=== PATIENT | male | born 1945 | race Caucasian/White ===

== ENCOUNTER 2021-01-04 06:00 | Outpatient (RCR) | payer MEDICARE, MEDICAID, SELFPAY | END 2021-01-05 23:59 | disposition home or self-care (01) | LOC: MPT 06:00 | PROVIDERS: PCP Internal Medicine Cardiovascular Disease; Referring Provider Family Medicine; Visit Provider Family Medicine | DX: M25.511 Pain in right shoulder (principal); M25.512 Pain in left shoulder | CPT/HCPCS: 97162 ==

== ENCOUNTER 2021-10-09 16:33 | Emergency (ER) | payer MEDICARE, MEDICAID, SELFPAY ==
[2021-10-09 16:46] VITALS: BP 148/84; PULSE 77; RESP 19; TEMP 36.6; O2SAT 98; BMI 23.7
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
--- NOTE | 2021-10-09 17:12 | ECG_ITS ---
[facility] Test Date: 2021-10-09 Pat Name: Jeison Herrera Department: Room: Gender: Male Manufacturing Operations Manager: : 1945 Requested By: Gibran Graves Order Number: [id number] Pavithra MD: Franco Cortes M.D. Measurements Intervals [place] Rate: 68 P: 65 W[place]: 210 QRS: 50 QRSD: 97 T: 51 QT: 374 QTc: 398 Interpretive Statements SINUS RHYTHM WITH FIRST DEGREE AV BLOCK Compared to ECG 03/30/2018 14:33:22 First degree AV block now present Electronically Signed On 10-10-2021 15:28:16 CDT by Franco Cortes M.D. [id number]
--- NOTE | 2021-10-09 17:48 | PC.NURSE ---
PT PLACED ON CONTINUOUS SPO2, NIBP, AND CM.
[2021-10-09 17:57] LABS: Basophils # 0.1 10^3/uL (0.0-0.1); Basophils % 0.6 %; Eosinophils # 0.1 10^3/uL (0.0-0.8); Hemoglobin 18.2 g/dL (11.7-16.6); Lymphocytes # 2.1 10^3/uL (0.8-4.8); Lymphocytes % 21.9 %; Mean Corpuscular HGB Conc 35.7 g/dL (30.0-36.0); Mean Corpuscular Hemoglobin 31.3 pg (28.0-34.0); Mean Corpuscular Volume 87.8 fl (80-94); Mean Platelet Volume 10.5 fL (7.4-10.4); Monocytes # 0.6 10^3/uL (0.2-0.9); Monocytes % 6.2 %; Neutrophils # 6.65 10^3/uL (1.8-7.7); Neutrophils % 70.2 %; Nucleated Red Blood Cells % 0 %; Platelet Count 181 10^3/cmm (130-400); Red Blood Count 5.81 10^6/uL (4.1-5.3); Red Cell Distribution Width 12.8 % (12.1-15.1); White Blood Count 9.5 10^3/uL (4.0-10.0)
[2021-10-09 17:58] LABS: Add Urine Microscopic? NO; Charge for UA Resulting for Rev
[2021-10-09 18:06] LABS: Bilirubin Urine Neg (Negative); Blood Urine Neg (Negative); Glucose Urine UA Norm (Normal); Ketones Urine Negative (Negative); Leukocyte Esterase Urine Negative (Negative); Nitrate Urine Negative (Negative); Protein Urine Neg (Negative); Urine Appearance Clear (CLEAR); Urine Color Yellow (Yellow); Urobilinogen Urine Norm (Negative); pH Urine 5 (5-7)
[2021-10-09] MEDS: lactated ringers 1,000 ML 999 ML IV (18:10)
[2021-10-09 18:34] LABS: Alanine Aminotransferase 28 U/L (0-41); Albumin Level 5.3 g/dL (3.5-5.2); Alkaline Phosphatase 96 IU/L (40-130); Anion Gap 16.9 (5-19); Aspartate Amino Transferase 18 U/L (0-40); Blood Urea Nitrogen 16 mg/dL (8-23); Calcium 10.1 mg/dL (8.5-10.5); Carbon Dioxide 25 mmol/L (22-29); Chloride 99 mmol/L (98-107); Creatine Phosphokinase 96 U/L (39-308); Globulin 2.1 g/dL (1.3-4.6); Glucose 179 mg/dL (65-115); Osmolality Calculated 290 mOsm/kg (285-295); Potassium 3.9 mmol/L (3.5-5.1); Sodium 137 mmol/L (136-145); Total Bilirubin 1.2 mg/dL (0.15-1.2); Total Protein 7.4 g/dL (6.6-8.7)
[2021-10-09 18:59] LABS: Troponin(5th) Baseline 8 ng/L (0-15)
--- NOTE | 2021-10-09 19:02 | PC.NURSE ---
REPORT GIVEN TO [facility].
[2021-10-09 19:52] LABS: Troponin 5 2HR 8.04 ng/L (0-15)
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
[2021-10-09 21:30] VITALS: BP 142/85
--- NOTE | 2021-10-10 12:31 | DCPLANNER ---
Addendum entered by Karma José 11/09/21 21:41: Patient had [facility] appointment scheduled with [facility] - this appointment was rescheduled. Addendum entered by Karma José 10/11/21 08:23: Patient has a follow up appointment scheduled for Tuesday, November 09, 2021 at 11:[address] Mello at [facility]. it operations manager spoke with patients and gave her the appointment information. Addendum entered by Karma José 10/10/21 12:34: it operations manager sent patients information to [facility] not [facility]. Original Note: it operations manager had message to schedule a follow up appointment for patient with cardiology. it operations manager sent patients information to the front staff at [facility] thru [employer] messaging system. Patients information will be printed and reviewed. Clinic will call patient with appointment information.
--- NOTE | 2021-10-10 15:40 | DCPLANNER ---
Addendum entered by Karma José 10/11/21 08:24: Patients returned ed case manager phone call. global compensation manager explained that this feature writer was wanting to confirm that patient still wanted to have the stress test ordered and to confirm who patient sees for a primary care physician. global compensation manager was told that patient sees Salvador Wayen for primary care and that patient wants to wait and see Dr. Mello before scheduling the stress test. Patient stated that if Dr. Mello says that patient needs a stress test, then she can order the test. Patient is aware of the scheduled appointment with Dr. Mello. Original Note: global compensation manager had message to schedule an out patient stress test for patient. global compensation manager called phone number [phone], to confirm that patient wanted the stress test ordered and to confirm who patient sees for primary care physician. global compensation manager was unable to speak with patient at this time, a voicemail was left for patient to return ed case manager phone call.
== END 2021-10-09 21:31 | disposition home or self-care (01) ==
PROVIDERS: Family Medicine; Emergency Provider Emergency Medicine; PCP Family Medicine
DX: R07.89 Other chest pain (principal); I95.89 Other hypotension; E11.9 Type 2 diabetes mellitus without complications; Z87.828 Personal history of other (healed) physical injury and trauma
CPT/HCPCS: 71045; 80053; 81003; 82550; 84484; 85025; 93005; 96360; 99284

== ENCOUNTER 2022-07-05 10:25 | Emergency (ER) | payer MEDICARE, MEDICAID, SELFPAY ==
[2022-07-05 10:29] VITALS: BP 178/91; PULSE 72; RESP 18; TEMP 37.2; O2SAT 98; BMI 24.4
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
--- NOTE | 2022-07-05 12:02 | DCPLANNER ---
Addendum entered by Karma José 07/14/22 11:04: Patient had a follow up appointment scheduled with Wound Care - patient did attend appointment. Original Note: contact center manager was asked to call W[facility] Care about scheduling an appointment for patient. contact center manager called the Wound Care clinic, spoke with Rebecca, a follow up appointment was scheduled for , July 06, 2022 at 2:[address] disla at wound care. contact center manager informed physician and patient of the scheduled appointment. Patient stated that he would go to appointment.
== END 2022-07-05 11:32 | disposition home or self-care (01) ==
PROVIDERS: Emergency Provider Family Medicine; PCP Family Medicine
DX: T33.822A Superficial frostbite of left foot, initial encounter (principal); T33.821A Superficial frostbite of right foot, initial encounter; E11.9 Type 2 diabetes mellitus without complications; X31.XXXA Exposure to excessive natural cold, initial encounter
CPT/HCPCS: 73620; 99283

== ENCOUNTER → 2022-07-06 14:16 | Outpatient (BNVA) | payer MEDICARE, MEDICAID, SELFPAY | PROVIDERS: PCP Family Medicine; Visit Provider Surgery | DX: S90.822A Blister (nonthermal), left foot, initial encounter (principal); S90.821A Blister (nonthermal), right foot, initial encounter; X58.XXXA Exposure to other specified factors, initial encounter | CPT/HCPCS: 99212 ==

== ENCOUNTER 2022-11-19 10:29 | Emergency (ER) | payer MEDICARE, MEDICAID, SELFPAY ==
[2022-11-19] VITALS (36 sets, daily range): BP systolic 93–156; BP diastolic 55–93; PULSE 72; TEMP 36.6; O2SAT 93–100; BMI 23.7
--- NOTE | 2022-11-19 11:58 | CTR_ITS ---
PROCEDURE INFORMATION: Exam: CT Neck With Contrast Exam date and time: 11/19/2022 1:43 PM Age: 77 years old Clinical indication: Other: Jaw pain; Additional info: RT superior neck pain TECHNIQUE: Imaging protocol: Computed tomography of the neck with contrast. Radiation optimization: All CT scans at this facility use at least one of these dose optimization techniques: automated exposure control; mA and/or kV adjustment per patient size (includes targeted exams where dose is matched to clinical indication); or iterative reconstruction. Contrast material: OMNI 350; Contrast volume: 80 ml; Contrast route: INTRAVENOUS (IV); REPORTING DATA: Count of CT and Cardiac NM exams in prior 12 months: This patient has received 0 known CTs and 0 known cardiac nuclear medicine studies in the 12 months prior to the current study. COMPARISON: CT cervical spin wo con* [id number] 04/04/2017 3:36 PM RADIATION DOSE METRICS: Total DLP (mGy-cm): 286.38 FINDINGS: Orbital cavities: Visualized orbits appear unremarkable. Pharynx: Unremarkable. No significant tonsillar enlargement. Larynx: Unremarkable. Epiglottis is normal. Prevertebral and retropharyngeal spaces: Unremarkable. Salivary glands: Normal. Glands are normal in size. Thyroid: Normal. No enlarged or calcified nodules. Lymph nodes: No enlarged or morphologically abnormal lymph nodes. Trachea: Visualized trachea is unremarkable. Lungs: Unremarkable as visualized. Bones/joints: There is moderate neural foraminal narrowing C5-C6 and C6-C7. No significant degrees of spinal stenosis. No evidence of acute fracture. Vasculature: Bilateral carotid and vertebral arteries are widely patent. Soft tissues: Unremarkable. No significant soft tissue swelling. CT/CT neck w con* [id number] IMPRESSION: No acute or significant findings.
[2022-11-19] MEDS: morphine 4 mg/mL SDV 1 mL IVP (12:15)
[2022-11-19 12:22] LABS: Basophils % 0.4 %; Eosinophils # 0.1 10^3/uL (0.0-0.8); Hematocrit 47.4 % (42.0-52.0); Hemoglobin 16.7 g/dL (11.7-16.6); Lymphocytes # 1.7 10^3/uL (0.8-4.8); Lymphocytes % 15.5 %; Mean Corpuscular HGB Conc 35.2 g/dL (30.0-36.0); Mean Corpuscular Hemoglobin 31.5 pg (28.0-34.0); Mean Corpuscular Volume 89.3 fl (80-94); Mean Platelet Volume 10.3 fL (7.4-10.4); Monocytes # 0.9 10^3/uL (0.2-0.9); Monocytes % 8.6 %; Neutrophils # 7.93 10^3/uL (1.8-7.7); Neutrophils % 74.3 %; Nucleated Red Blood Cells % 0 %; Platelet Count 155 10^3/cmm (130-400); Red Blood Count 5.31 10^6/uL (4.1-5.3); Red Cell Distribution Width 12.6 % (12.1-15.1); White Blood Count 10.7 10^3/uL (4.0-10.0)
[2022-11-19 12:47] LABS: Alanine Aminotransferase 19 U/L (0-41); Albumin Level 4.8 g/dL (3.5-5.2); Alkaline Phosphatase 95 U/L (40-130); Aspartate Amino Transferase 14 U/L (0-40); Blood Urea Nitrogen 10 mg/dL (8-23); C Reactive Protein 3.3 mg/L (0.0-4.9); Calcium 8.8 mg/dL (8.5-10.5); Carbon Dioxide 25 mmol/L (22-29); Chloride 103 mmol/L (98-107); Globulin 2.6 g/dL (1.3-4.6); Glucose 144 mg/dL (65-115); Osmolality Calculated 290 mOsm/kg (285-295); Sodium 139 mmol/L (136-145); Total Bilirubin 1.3 mg/dL (0.15-1.2); Total Protein 7.4 g/dL (6.6-8.7)
[2022-11-19] MEDS: dexamethasone 10 mg/mL INJ IVP (13:27)
[2022-11-19 13:28] LABS: Erythrocyte Sedimentation Rate 3 mm/hr (0-10)
[2022-11-19] MEDS: morphine 4 mg/mL SDV 1 mL 2 MG IVP (13:28)
--- NOTE | 2022-11-19 13:47 | PC.PHAR ---
pts verified pts medications states the pt is no longer taking flomax 0.4mg daily ext shows last filled 07/15/22 90d/s-pts states the pt is taking lansoprazole 30mg qam and pepcid 40mg hs
[2022-11-19] MEDS: iohexol 350 mg/mL 500 mL Btl (per mL) IV (13:49)
[2022-11-19] MEDS: gabapentin 100 mg Capsule PO (17:05)
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
== END 2022-11-19 17:17 | disposition home or self-care (01) ==
PROVIDERS: Emergency Provider Physician Assistant; PCP Family Medicine
DX: G50.0 Trigeminal neuralgia (principal); Z79.84 Long term (current) use of oral hypoglycemic drugs; E11.9 Type 2 diabetes mellitus without complications
CPT/HCPCS: 70491; 80053; 85025; 85651; 86140; 96374; 96375; 96376; 99285; J1100; J2270; Q9967

== ENCOUNTER 2023-04-07 14:35 | Emergency (ER) | payer MEDICARE, MEDICAID, SELFPAY ==
[2023-04-07 14:36] VITALS: BP 150/71; PULSE 72; RESP 16; O2SAT 99
--- NOTE | 2023-04-07 14:48 | ECG_ITS ---
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 Measurements Intervals [place] Rate: 62 P: 54 PA: 232 QRS: 35 QRSD: 85 T: 42 QT: 375 QTc: 382 Interpretive Statements SINUS RHYTHM WITH FIRST DEGREE AV BLOCK Compared to ECG 10/09/2021 17:43:00 No significant changes Electronically Signed On 04-08-2023 11:10:59 CDT by Nicolas Aguirre M.D. [email or web address]
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
[2023-04-07 15:14] VITALS: BP 119/71; PULSE 67; RESP 17; O2SAT 95
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
[2023-04-07 15:28] LABS: Basophils # 0.1 10^3/uL (0.0-0.1); Basophils % 0.7 %; Eosinophils # 0.1 10^3/uL (0.0-0.8); Eosinophils % 1.4 %; Hematocrit 46.2 % (37-53); Lymphocytes # 1.9 10^3/uL (0.8-4.8); Lymphocytes % 26.3 %; Mean Corpuscular HGB Conc 35.5 g/dL (30-55); Mean Corpuscular Hemoglobin 31.5 pg (27-33); Mean Corpuscular Volume 88.7 fl (82-101); Monocytes # 0.6 10^3/uL (0.2-0.9); Neutrophils # 4.44 10^3/uL (1.8-7.7); Neutrophils % 62.3 %; Nucleated Red Blood Cells % 0 %; Platelet Count 138 10^3/cmm (157-399); Red Blood Count 5.21 10^6/uL (3.85-5.65); Red Cell Distribution Width 13.1 % (12.1-15.1); White Blood Count 7.12 10^3/uL (3.29-11.43)
[2023-04-07 15:40] LABS: Troponin(5th) Baseline 7 ng/L (0-15)
[2023-04-07 15:44] LABS: Blood Urea Nitrogen 10 mg/dL (8-23); Calcium 8.7 mg/dL (8.5-10.5); Carbon Dioxide 22 mmol/L (22-29); Chloride 105 mmol/L (98-107); Creatinine Clr Calc Pharmacy 72.8653; Glucose 165 mg/dL (65-115); Osmolality Calculated 293 mOsm/kg (285-295); Sodium 140 mmol/L (136-145)
[2023-04-07 16:00] VITALS: BP 134/75; PULSE 62; RESP 14; O2SAT 95
--- NOTE | 2023-04-07 16:48 | ECG_ITS ---
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 Measurements Intervals [place] Rate: 70 P: 56 [place]: 211 QRS: 42 QRSD: 93 T: 34 QT: 371 QTc: 402 Interpretive Statements SINUS RHYTHM WITH FIRST DEGREE AV BLOCK Compared to ECG 10/09/2021 17:43:00 No significant changes Electronically Signed On 04-08-2023 11:12:32 CDT by Nicolas Aguirre M.D. [id number]
[2023-04-07 17:00] VITALS: BP 124/74; PULSE 61; O2SAT 96
--- NOTE | 2023-04-07 17:17 | ECG_ITS ---
[facility] Test Date: 2023-04-07 Pat Name: Jeison Herrera Department: Room: Gender: Male Parole Agent: : 1945 Requested By: Adam Lynn Order Number: [id number] Pavithra MD: Nicolas Aguirre M.D. Measurements Intervals [place] Rate: 57 P: 55 [place]: 215 QRS: 33 QRSD: 90 T: 39 QT: 403 QTc: 393 Interpretive Statements SINUS BRADYCARDIA WITH FIRST DEGREE AV BLOCK Compared to ECG 04/07/2023 16:05:13 Sinus rhythm no longer present Electronically Signed On 04-08-2023 11:12:29 CDT by Nicolas Aguirre M.D. [id number]
== END 2023-04-07 17:57 | disposition home or self-care (01) ==
PROVIDERS: Emergency Provider Emergency Medicine; PCP Family Medicine
DX: R07.9 Chest pain, unspecified (principal); Z79.84 Long term (current) use of oral hypoglycemic drugs; E11.9 Type 2 diabetes mellitus without complications
CPT/HCPCS: 36415; 71045; 80048; 84484; 85025; 93005; 99285

== ENCOUNTER 2023-07-08 17:41 | Emergency (ER) | payer MEDICARE, MEDICAID, SELFPAY ==
[2023-07-08 17:42] VITALS: BP 168/81; PULSE 69; RESP 18; TEMP 36.5; O2SAT 98
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
[2023-07-08 18:30] LABS: Basophils # 0.1 10^3/uL (0.0-0.1); Basophils % 0.7 %; Eosinophils # 0.2 10^3/uL (0.0-0.8); Eosinophils % 2.7 %; Lymphocytes # 2.3 10^3/uL (0.8-4.8); Lymphocytes % 30.7 %; Mean Corpuscular HGB Conc 35.7 g/dL (30-55); Mean Corpuscular Hemoglobin 31.8 pg (27-33); Mean Corpuscular Volume 89.3 fl (82-101); Mean Platelet Volume 10.4 fL (7.4-10.4); Monocytes # 0.6 10^3/uL (0.2-0.9); Monocytes % 7.7 %; Neutrophils # 4.33 10^3/uL (1.8-7.7); Neutrophils % 58.1 %; Nucleated Red Blood Cells % 0 %; Platelet Count 127 10^3/cmm (157-399); Red Blood Count 5.15 10^6/uL (3.85-5.65); Red Cell Distribution Width 12.6 % (12.1-15.1); White Blood Count 7.45 10^3/uL (3.29-11.43)
[2023-07-08 18:40] LABS: INR 0.99 (0.8-1.2)
[2023-07-08 18:46] LABS: Troponin(5th) Baseline < 6 ng/L (0-15)
[2023-07-08 19:11] LABS: Alanine Aminotransferase 20 U/L (0-41); Albumin Level 4.6 g/dL (3.5-5.2); Alkaline Phosphatase 91 U/L (40-130); Aspartate Amino Transferase 16 U/L (0-40); Blood Urea Nitrogen 11 mg/dL (8-23); Calcium 9.1 mg/dL (8.5-10.5); Carbon Dioxide 25 mmol/L (22-29); Chloride 100 mmol/L (98-107); Globulin 2.3 g/dL (1.3-4.6); Glucose 173 mg/dL (65-115); Lipase 25 U/L (13-60); Osmolality Calculated 286 mOsm/kg (285-295); Sodium 136 mmol/L (136-145); Total Bilirubin 0.8 mg/dL (0.15-1.2); Total Protein 6.9 g/dL (6.6-8.7)
[2023-07-08 19:19] LABS: Anion Gap 14.9 (5-19); Potassium 3.9 mmol/L (3.5-5.1)
[2023-07-08 19:48] VITALS: BP 146/89; PULSE 71; RESP 16; O2SAT 94
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
--- NOTE | 2023-07-08 20:12 | ECG_ITS ---
[facility] Test Date: 2023-07-08 Pat Name: Jeison Herrera Department: Room: Gender: Male Svp Business Development: : 1945 Requested By: Que Kim Order Number: [id number] Pavithra MD: Nicolas Aguirre M.D. Measurements Intervals [place] Rate: 67 P: 60 [place]: 210 QRS: 61 QRSD: 86 T: 61 QT: 379 QTc: 401 Interpretive Statements SINUS RHYTHM WITH FIRST DEGREE AV BLOCK Compared to ECG 04/07/2023 17:17:26 Sinus bradycardia no longer present Electronically Signed On 07-09-2023 8:38:24 COMPRESSOR OPERATOR PORTABLE by Nicolas Aguirre M.D. [email or web address] [email or web address]/[id number]
[2023-07-08 20:17] LABS: Troponin 5 2HR Delta 0.00001 ABS# (0-10)
[2023-07-08 20:40] VITALS: BP 148/86; PULSE 68; RESP 16; O2SAT 95
== END 2023-07-08 20:41 | disposition home or self-care (01) ==
PROVIDERS: Emergency Medicine; Emergency Provider Emergency Medicine; PCP Family Medicine
DX: R07.89 Other chest pain (principal); Z79.84 Long term (current) use of oral hypoglycemic drugs; E11.9 Type 2 diabetes mellitus without complications
CPT/HCPCS: 36415; 71045; 80053; 83690; 84484; 85025; 85610; 93005; 99285

== ENCOUNTER 2023-08-27 14:51 | Emergency (ER) | payer MEDICARE, MEDICAID, SELFPAY ==
[2023-08-27 15:06] VITALS: BP 164/84; PULSE 70; RESP 16; TEMP 36.3; O2SAT 99; BMI 23.0
--- NOTE | 2023-08-27 15:23 | ECG_ITS ---
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 Measurements Intervals [place] Rate: 67 P: 66 CT: 206 QRS: 51 QRSD: 98 T: 66 QT: 393 QTc: 415 Interpretive Statements SINUS RHYTHM Compared to ECG 07/08/2023 20:12:58 First degree AV block no longer present Electronically Signed On 08-28-2023 9:47:29 ACCOUNTS PAYABLES CLERK by Nicolas Aguirre M.D. [email or web address] [id number] f
--- NOTE | 2023-08-27 15:37 | CTR_ITS ---
PROCEDURE INFORMATION: Exam: CT Head Without Contrast Exam date and time: 08/27/2023 4:11 PM Age: 78 years old Clinical indication: Dizziness TECHNIQUE: Imaging protocol: Computed tomography of the head without contrast. Radiation optimization: All CT scans at this facility use at least one of these dose optimization techniques: automated exposure control; mA and/or kV adjustment per patient size (includes targeted exams where dose is matched to clinical indication); or iterative reconstruction. COMPARISON: CT angio head [id number] 04/04/2017 5:52 PM RADIATION DOSE METRICS: Total DLP (mGy-cm): 1390 FINDINGS: Brain: No evidence of mass effect, intracranial hemorrhage or extra-axial collection. No acute infarct. Stable appearance of mild atrophy. Cerebral ventricles: Unremarkable for age. Paranasal sinuses: No significant pathology. Mastoid air cells: No significant pathology. Bones/joints: No significant pathology. Soft tissues: No significant pathology. CT/CT head wo con* [id number] IMPRESSION: No acute pathology or significant interval change.
[2023-08-27 15:43] LABS: Glucose Point of Care 132 mg/dL (70-110)
[2023-08-27 15:49] LABS: Basophils # 0.1 10^3/uL (0.0-0.1); Basophils % 0.6 %; Eosinophils # 0.1 10^3/uL (0.0-0.8); Eosinophils % 1.7 %; Hematocrit 45.7 % (37-53); Lymphocytes # 2.5 10^3/uL (0.8-4.8); Lymphocytes % 29.6 %; Mean Corpuscular HGB Conc 36.3 g/dL (30-55); Mean Corpuscular Hemoglobin 31.9 pg (27-33); Mean Corpuscular Volume 87.9 fl (82-101); Mean Platelet Volume 10.3 fL (7.4-10.4); Monocytes # 0.6 10^3/uL (0.2-0.9); Neutrophils # 5.08 10^3/uL (1.8-7.7); Neutrophils % 60.7 %; Nucleated Red Blood Cells % 0 %; Platelet Count 157 10^3/cmm (157-399); Red Cell Distribution Width 12.7 % (12.1-15.1); White Blood Count 8.37 10^3/uL (3.29-11.43)
[2023-08-27 15:55] LABS: Partial Thromboplastin Time 31.8 SECONDS (23.9-36.7)
[2023-08-27 16:11] LABS: Alanine Aminotransferase 17 U/L (0-41); Albumin Level 4.6 g/dL (3.5-5.2); Alkaline Phosphatase 90 U/L (40-130); Anion Gap 15.8 (5-19); Aspartate Amino Transferase 14 U/L (0-40); Blood Urea Nitrogen 15 mg/dL (8-23); Carbon Dioxide 26 mmol/L (22-29); Chloride 101 mmol/L (98-107); Creatinine Clr Calc Pharmacy 64.5037; Globulin 2.8 g/dL (1.3-4.6); Glucose 139 mg/dL (65-115); NT Pro B Type Natriuretic Pept 155 pg/mL (0-450); Osmolality Calculated 291 mOsm/kg (285-295); Potassium 3.8 mmol/L (3.5-5.1); Sodium 139 mmol/L (136-145); Total Bilirubin 1.4 mg/dL (0.15-1.2); Total Protein 7.4 g/dL (6.6-8.7)
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
[2023-08-27 17:46] LABS: Lipase 17 U/L (13-60)
[2023-08-27 17:54] VITALS: BP 125/69; PULSE 90; RESP 12; O2SAT 91
== END 2023-08-27 17:57 | disposition home or self-care (01) ==
PROVIDERS: Emergency Provider Internal Medicine; PCP Family Medicine
DX: R10.11 Right upper quadrant pain (principal); R42 Dizziness and giddiness; Z79.84 Long term (current) use of oral hypoglycemic drugs; E11.9 Type 2 diabetes mellitus without complications
CPT/HCPCS: 36416; 70450; 80053; 82962; 83690; 83735; 83880; 85025; 85610; 85730; 93005; 99284

== ENCOUNTER 2023-11-29 09:57 | Emergency (ER) | payer MEDICARE, MEDICAID, SELFPAY ==
[2023-11-29 10:07] VITALS: BP 163/85; PULSE 75; RESP 17; TEMP 36.4; O2SAT 91; BMI 22.5
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
[2023-11-29 11:37] LABS: Basophils % 0.4 %; Eosinophils # 0.1 10^3/uL (0.0-0.8); Eosinophils % 0.7 %; Hematocrit 48.8 % (37-53); Lymphocytes # 1.3 10^3/uL (0.8-4.8); Lymphocytes % 17.7 %; Mean Corpuscular Hemoglobin 30.7 pg (27-33); Mean Corpuscular Volume 90.4 fl (82-101); Mean Platelet Volume 10.8 fL (7.4-10.4); Monocytes # 0.5 10^3/uL (0.2-0.9); Monocytes % 6.7 %; Neutrophils # 5.45 10^3/uL (1.8-7.7); Neutrophils % 74.2 %; Nucleated Red Blood Cells % 0 %; Platelet Count 142 10^3/cmm (157-399); Red Cell Distribution Width 12.3 % (12.1-15.1); White Blood Count 7.34 10^3/uL (3.29-11.43)
[2023-11-29 11:52] LABS: Alanine Aminotransferase 17 U/L (0-41); Albumin Level 4.7 g/dL (3.5-5.2); Alkaline Phosphatase 117 U/L (40-130); Anion Gap 14.9 (5-19); Aspartate Amino Transferase 16 U/L (0-40); Blood Urea Nitrogen 19 mg/dL (8-23); Calcium 8.8 mg/dL (8.5-10.5); Carbon Dioxide 27 mmol/L (22-29); Chloride 102 mmol/L (98-107); Creatinine Clr Calc Pharmacy 63.8987; Globulin 3.3 g/dL (1.3-4.6); Glucose 150 mg/dL (65-115); Osmolality Calculated 295 mOsm/kg (285-295); Potassium 3.9 mmol/L (3.5-5.1); Sodium 140 mmol/L (136-145); Total Bilirubin 0.9 mg/dL (0.15-1.2)
--- NOTE | 2023-11-29 13:19 | ECG_ITS ---
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 Measurements Intervals [place] Rate: 70 P: 66 [place]: 214 QRS: 59 QRSD: 94 T: 60 QT: 397 QTc: 430 Interpretive Statements SINUS RHYTHM WITH FIRST DEGREE AV BLOCK Compared to ECG 08/27/2023 15:23:42 First degree AV block now present Electronically Signed On 11-29-2023 17:08:56 CDT by Nicolas Aguirre M.D. [email or web address] Beauty Care Pvt Ltdron[email or web address]/[id number]
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
[2023-11-29 13:53] VITALS: BP 116/76; PULSE 98; RESP 19; O2SAT 91
== END 2023-11-29 13:54 | disposition home or self-care (01) ==
PROVIDERS: Emergency Provider Emergency Medicine; PCP Family Medicine
DX: J40 Bronchitis, not specified as acute or chronic (principal); Z79.84 Long term (current) use of oral hypoglycemic drugs; E11.9 Type 2 diabetes mellitus without complications
CPT/HCPCS: 36415; 71045; 80053; 85025; 93005; 99285

== ENCOUNTER 2023-12-21 15:41 | Emergency (ER) | payer MEDICARE, MEDICAID, SELFPAY ==
[2023-12-21 15:42] VITALS: BP 129/72; PULSE 70; RESP 18; TEMP 36.4; O2SAT 97
--- NOTE | 2023-12-21 15:46 | ECG_ITS ---
[facility] Test Date: 2023-12-21 Pat Name: Jeison Herrera Department: Room: Gender: Male [employer]: : 1945 Requested By: Lorin Krishnamurthy Order Number: [id number] Pavithra MD: Angela Parsons M.D. Measurements Intervals [place] Rate: 69 P: 60 CA: 208 QRS: 55 QRSD: 89 T: 50 QT: 361 QTc: 389 Interpretive Statements SINUS RHYTHM NONSPECIFIC T-WAVE ABNORMALITY Possible old septal ME Compared to ECG 11/29/2023 13:19:46 T-wave abnormality now present First degree AV block no longer present Electronically Signed On 12-21-2023 19:12:08 CDT by Angela Parsons M.D. [id number] f
[2023-12-21 16:06] LABS: Basophils # 0.1 10^3/uL (0.0-0.1); Basophils % 0.5 %; Eosinophils # 0.1 10^3/uL (0.0-0.8); Hematocrit 47.4 % (37-53); Lymphocytes # 1.9 10^3/uL (0.8-4.8); Lymphocytes % 20.5 %; Mean Corpuscular Hemoglobin 31.6 pg (27-33); Mean Corpuscular Volume 90.1 fl (82-101); Mean Platelet Volume 10.6 fL (7.4-10.4); Monocytes # 0.6 10^3/uL (0.2-0.9); Monocytes % 6.7 %; Neutrophils # 6.56 10^3/uL (1.8-7.7); Nucleated Red Blood Cells % 0 %; Platelet Count 150 10^3/cmm (157-399); Red Blood Count 5.26 10^6/uL (3.85-5.65); Red Cell Distribution Width 12.6 % (12.1-15.1); White Blood Count 9.25 10^3/uL (3.29-11.43)
[2023-12-21 16:23] LABS: Troponin(5th) Baseline 8 ng/L (0-15)
[2023-12-21 16:25] LABS: Alanine Aminotransferase 19 U/L (0-41); Albumin Level 4.5 g/dL (3.5-5.2); Alkaline Phosphatase 85 U/L (40-130); Anion Gap 15.8 (5-19); Aspartate Amino Transferase 12 U/L (0-40); Blood Urea Nitrogen 16 mg/dL (8-23); Calcium 8.8 mg/dL (8.5-10.5); Carbon Dioxide 26 mmol/L (22-29); Chloride 101 mmol/L (98-107); Globulin 2.6 g/dL (1.3-4.6); Glucose 169 mg/dL (65-115); Osmolality Calculated 293 mOsm/kg (285-295); Potassium 3.8 mmol/L (3.5-5.1); Sodium 139 mmol/L (136-145); Total Bilirubin 1.1 mg/dL (0.15-1.2); Total Protein 7.1 g/dL (6.6-8.7)
== END 2023-12-21 16:54 | disposition left against medical advice (07) ==
PROVIDERS: Physician Assistant; Emergency Provider Family Medicine; PCP Family Medicine
DX: Z53.21 Procedure and treatment not carried out due to patient leaving prior to being seen by health care provider (principal)
CPT/HCPCS: 36415; 80053; 84484; 85025; 93005

== ENCOUNTER 2024-12-22 07:37 | Emergency (ER) | payer MEDICARE, MEDICAID, SELFPAY ==
[2024-12-22 07:44] VITALS: BP 169/74; PULSE 74; RESP 18; TEMP 36.8; O2SAT 96
--- NOTE | 2024-12-22 08:04 | CT_ITS ---
WS: [id number] CT ABDOMEN PELVIS TECHNIQUE: Contrast-enhanced CT of the abdomen and pelvis with coronal and sagittal reformatted images. CLINICAL INFORMATION: abd pain COMPARISON: 2015 DLP: 321.[address] scans at [facility] use at least one of these dose optimization techniques: automated exposure control; mA and/or kV adjustment per patient size (includes targeted exams where dose is matched to clinical indication); or iterative reconstruction. FINDINGS: Diffuse thickening and enhancement of the RIGHT colon and transverse colon worse in the transverse colon compatible with colitis. Descending colon has a more normal appearance. Cholecystectomy. Fatty liver. Mild splenomegaly. Mild hepatomegaly. Small esophageal hiatal hernia. Adrenal glands are normal. Small LEFT renal cyst. Subsegmental atelectasis in the lung bases. Normal caliber abdominal aorta. Aortic calcification. Retroaortic LEFT renal vein. Enlarged prostate measuring 5.[address]/CT abdomen pelvis w con* [id number] IMPRESSION: 1. Colitis involving the RIGHT colon and transverse colon with induration and enhancement likely infectious or inflammatory. 2. Sigmoid colon has a more normal appearance with diverticulosis. 3. Other nonacute findings described above.
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
[2024-12-22 08:31] LABS: Basophils % 0.3 %; Eosinophils # 0.1 10^3/uL (0.0-0.8); Hematocrit 43.2 % (37-53); Lymphocytes # 0.9 10^3/uL (0.8-4.8); Mean Corpuscular HGB Conc 36.1 g/dL (30-55); Mean Corpuscular Hemoglobin 31.1 pg (27-33); Mean Corpuscular Volume 86.2 fl (82-101); Mean Platelet Volume 10.2 fL (7.4-10.4); Monocytes # 0.9 10^3/uL (0.2-0.9); Monocytes % 8.3 %; Neutrophils # 8.44 10^3/uL (1.8-7.7); Nucleated Red Blood Cells % 0 %; Platelet Count 146 10^3/cmm (157-399); Red Blood Count 5.01 10^6/uL (3.85-5.65); Red Cell Distribution Width 12.8 % (12.1-15.1); White Blood Count 10.41 10^3/uL (3.29-11.43)
[2024-12-22 08:55] LABS: Bilirubin Urine Negative (Negative); Blood Urine Negative (Negative); Glucose Urine UA Negative (Normal); Ketones Urine 1+ (Negative); Leukocyte Esterase Urine Trace (Negative); Nitrate Urine Negative (Negative); Protein Urine Trace (Negative); Specific Gravity, Urine 1.023 (1.005-1.030); Urine Appearance Clear (CLEAR)
[2024-12-22 08:58] LABS: Alanine Aminotransferase 16 U/L (0-41); Albumin Level 4.2 g/dL (3.5-5.2); Alkaline Phosphatase 138 U/L (40-130); Anion Gap 15.8 (5-19); Aspartate Amino Transferase 14 U/L (0-40); Blood Urea Nitrogen 9 mg/dL (8-23); Carbon Dioxide 24 mmol/L (22-29); Chloride 100 mmol/L (98-107); Creatinine Clr Calc Pharmacy 69.9806; Globulin 2.7 g/dL (1.3-4.6); Glucose 175 mg/dL (65-115); Lipase 15 U/L (13-60); Osmolality Calculated 285 mOsm/kg (285-295); Potassium 3.8 mmol/L (3.5-5.1); Sodium 136 mmol/L (136-145); Total Bilirubin 1.4 mg/dL (0.15-1.2); Total Protein 6.9 g/dL (6.6-8.7)
[2024-12-22 09:00] LABS: Add Urine Microscopic? YES
[2024-12-22] MEDS: iohexol 350 mg/mL 500 mL Btl (per mL) IV (09:31)
[2024-12-22 10:12] LABS: Urine Color Orange (Yellow)
[2024-12-22 10:13] LABS: Calcium Oxalate Crystals Urine 0-4 /hpf; Mucus Urine 1+ /hpf; RBC Urine 0-4 /hpf (0-2); Squamous Epithelial Cell Urine 0-4 /hpf (0-5); UA Manual Slide Review YES; UA Slide Review UA Slide Review Perf; WBC Urine 0-4 /hpf (0-5)
[2024-12-22 10:14] LABS: Sperm Urine 1+ /hpf
[2024-12-22 11:37] VITALS: BP 125/70; PULSE 71; RESP 16; O2SAT 95
== END 2024-12-22 11:49 | disposition home or self-care (01) ==
PROVIDERS: Emergency Provider Family Medicine; PCP Family Medicine
DX: K52.9 Noninfective gastroenteritis and colitis, unspecified (principal); Z79.4 Long term (current) use of insulin; E11.9 Type 2 diabetes mellitus without complications
CPT/HCPCS: 36415; 74177; 80053; 81001; 83690; 85025; 99285

== ENCOUNTER 2025-02-16 16:51 | Emergency (ER) | payer MEDICARE, MEDICAID, SELFPAY ==
[2025-02-16 16:58] VITALS: BP 150/74; PULSE 64; RESP 16; TEMP 36.3; O2SAT 96; BMI 22.9
--- NOTE | 2025-02-16 17:14 | PC.NURSE ---
c collar applied during triage
[2025-02-16 17:17] VITALS: BP 145/86; O2SAT 98
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
[2025-02-16 17:57] VITALS: O2SAT 97
[2025-02-16 18:03] LABS: Hematocrit 44.1 % (37-53); Hemoglobin 15.60 g/dL (11.27-16.99); Mean Corpuscular HGB Conc 35.4 g/dL (30-55); Mean Corpuscular Hemoglobin 31.2 pg (27-33); Mean Corpuscular Volume 88.2 fl (82-101); Nucleated Red Blood Cells % 0 %; Platelet Count 163 10^3/cmm (157-399); Red Blood Count 5.00 10^6/uL (3.85-5.65); White Blood Count 8.32 10^3/uL (3.29-11.43)
[2025-02-16 18:08] VITALS: O2SAT 95
[2025-02-16 18:21] LABS: Alanine Aminotransferase 16 U/L (0-41); Albumin Level 4.8 g/dL (3.5-5.2); Alkaline Phosphatase 90 U/L (40-130); Anion Gap 15.9 (5-19); Aspartate Amino Transferase 13 U/L (0-40); Blood Urea Nitrogen 21 mg/dL (8-23); Calcium 9.3 mg/dL (8.5-10.5); Carbon Dioxide 24 mmol/L (22-29); Chloride 105 mmol/L (98-107); Creatinine Clr Calc Pharmacy 52.7332; Globulin 2.6 g/dL (1.3-4.6); Glucose 127 mg/dL (65-115); Osmolality Calculated 295 mOsm/kg (285-295); Potassium 4.9 mmol/L (3.5-5.1); Sodium 140 mmol/L (136-145); Total Protein 7.4 g/dL (6.6-8.7)
[2025-02-16 18:25] LABS: Glucose Urine UA Negative (Normal); Nitrate Urine Negative (Negative); Specific Gravity, Urine 1.023 (1.005-1.030)
[2025-02-16 18:30] LABS: Add Urine Microscopic? YES
[2025-02-16] MEDS: orphenadrine 30 mg/mL Inj 2 mL 60 MG IM (18:34)
[2025-02-16 19:12] VITALS: BP 115/66; PULSE 61; RESP 16; O2SAT 96
--- OUTSIDE RECORDS SUMMARY | 2025-02-18 12:15 | XMS_ITS | Encounter Summary ---
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
--- OUTSIDE RECORDS SUMMARY | 2025-02-18 12:15 | XMS_ITS | Encounter Summary ---
Author Organization [facility] Address [address] [facility] Attn: Epic Prelude ADT OMER GALARZA DIVYA [address] Care Team Providers Care Sql Server Dba Developer Name Role Phone Unavailable Primary Care Provider Unavailabl e Encounter Details Date Type Department Care Team (Late st Contact Info) Description 11/05/2000 Outpatient Historical Non-Staff, Physician NO ADDRESS ON FILE Social History Tobacco Use Types Packs/Day Years Used Date Smoking Tobacco: Never Assessed Sex and Gender Information Value Date Recorded Sex Assigned at Not on file 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
--- OUTSIDE RECORDS SUMMARY | 2025-02-18 12:15 | XMS_ITS | Encounter Summary ---
Author Organization [facility] Address [address] [address] Phone Care Team Providers Care Interventional Nurse Name Role Phone Salvador Wayne Primary Care Provider [phone] Encounter Details Date Type Department Care Team (Late st Contact Info) Description 05/28/2023 Telephone [facility] [address] [address] Zoe Woodall FNP [address] [place] [address] Social History Tobacco Use Types Packs/Day Years Used Date Smoking Tobacco: Former Cigarettes Smokeless Tobacco: Never Alcohol Use Standard Drinks/Week Comments Yes 0 (1 standard drink = 0.6 oz pur e alcohol) AUDIT-C Answer Date Recorded Q1: How often do you have a drink containing alc ohol? Monthly or less 2023 Q2: How many drinks containi ng alcohol do you have on a typical day when you are drinking? 1 or 2 2023 Q3: How often do you have si x or more drinks on one occasion? Never 2023 PHQ-2 Answer Date Recorded Patient Health Questionnaire-2 Score 0 2023 [facility] - Transportation Answer Date Re corded In the past 12 months, has l ack of transportation kept you from medical appointments or from getting medications? No 08/2022 In the past 12 months, has l ack of transportation kept you from meetings, work, or from getting things needed for daily living? No 04/09/2023 [facility] - Mental Health Answer Date Recorde d Little interest or pleasure in doing things Not at all 2023 Feeling down, depressed, or hopeless Not at all 2023 Feeling of Stress Not on file 2023 Sex and Gender Information Value Date Recorded Sex Assigned at Not on file Legal Sex Male 9:28 AM CDT Gender Identity Not on file Sexual Orientation Not on file Occupation Industry Job Start Date Job End Date Not on file Not on file Not on file Not on file documented as of this encounter Miscellaneous Notes * Telephone Encounter - Jyoti Taylor - 05/28/2023 10:41 AM CST Referring provider notified. ER OR CHOREOGRAPHER * Telephone Encounter - Kristy Michael - 05/28/2023 9:47 AM CST Sending to Zoe for FYI ER OR CHOREOGRAPHER * Telephone Encounter - Jyoti Mercer - 05/28/2023 8:43 AM CST FYI--- Patient's called to cancel follow up appointment on 07/11/[address] scan on 06/20/23. When I asked if she was wanting to reschedule, she stated He wants to go ahead and just cancel everything, he doesn't feel like he's getting much taken care of. ER OR CHOREOGRAPHER documented in this encounter Plan of Treatment Not on file documented as of this encounter Visit Diagnoses Not on filedocumented in this encounter Care Teams Interventional Nurse Relationship Specialty Start Date End Date Salvador Wayne DO [address] [place] [address] PCP - General Family Medicine 04/18/23 documented as of this encounter
--- OUTSIDE RECORDS SUMMARY | 2025-02-18 12:15 | XMS_ITS | Encounter Summary ---
Author Organization [facility] Address [address] [facility] Attn: Epic Prelude ADT DIVYA STAHL [address] Care Team Providers Care Radar Operator Name Role Phone Unavailable Primary Care Provider Unavailabl e Encounter Details Date Type Department Care Team (Latest Contact Info) Description 07/22/1994 Emergency Lourdes Smith MD [address] [phone] Social History Tobacco Use Types Packs/Day Years Used Date Smoking Tobacco: Never Assessed Sex and Gender Information Value Date Recorded Sex Assigned at Not on file 

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
--- OUTSIDE RECORDS SUMMARY | 2025-02-18 12:15 | XMS_ITS | Encounter Summary ---
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
--- OUTSIDE RECORDS SUMMARY | 2025-02-18 12:15 | XMS_ITS | Clinical Summary ---
Author Organization [employer] [facility] Address [address] [facility] Attn: Epic Prelude ADT [place] ST[place] [address] Care Team Providers Care Lubrication Equipment Servicer Name Role Phone Unavailable Primary Care Provider Unavailabl e Allergies Active Allergy Reactions Criticality Noted Date Comments Amoxicillin Nausea and Vomiting Low 01/08/2024 Codeine Shortness of Breath/Wheezing High 023 Dicyclomine Swelling,Confusion High 04/09/2023 confusion Hydrocodone Nausea and Vomiting Low 12/21/2023 Meperidine Shortness of Breath/Wheezing High 023 Oxycodone Shortness of Breath/Wheezing High 023 Medications ALPRAZolam (XANAX) 0.25 mg tablet Take 0.25 mg by mouth nightly as needed for Anxiety. Active amLODIPine (NORVASC) 10 mg tablet Take 5 mg by mouth daily. Active famotidine (PEPCID) 40 mg tablet Take 40 mg by mouth daily. Active lansoprazole (PREVACID SoluTab) 15 mg Tablet,Rapid Dissolve, DR Take 30 mg by mouth daily. Active lisinopriL (PRINIVIL) 10 mg tablet Take 20 mg by mouth 2 times daily. Active metFORMIN (GLUCOPHAGE) 1,000 mg tablet Take 500 mg by mouth 2 times daily with meals. Active tiZANidine (ZANAFLEX) 2 mg Capsule Take 2 mg by mouth every 8 hours. Active ofloxacin (OCUFLOX) 0.3 % solution Administer 1 Drop in left eye 4 times daily. Active lipase-protease -amylase DR (LIUDMILA) 12,000-38,000-6 0,000 unit capsule Take 3 Capsules by mouth 3 times daily with meals. 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 Gender Identity Not on file Sexual Orientation Not on file Last Filed Vital Signs Vital Sign Reading Time Taken Comments Blood Pressure 132/80 02/27/2024 12:48 PM CDT Pulse 63 02/27/2024 12:48 PM CDT Temperature 36.9 C (98.4 F) 02/27/2024 12:48 PM CDT Respiratory Rate 18 02/27/2024 12:36 PM CDT Oxygen Saturation 96% 02/27/2024 12:48 PM CDT Inhaled Oxygen Concentration - - Weight 75.8 kg (167 lb) 02/27/2024 10:44 AM CDT Height 182.9 cm (6') 02/27/2024 10:44 AM CDT Body Mass Index 22.65 02/27/2024 10:44 AM CDT Plan of Treatment Health Maintenance Due Date Last Done Comments DTAP/TDAP/TD VACCINES (1 - Tdap) 1962 PNEUMOCOCCAL VACCINE 50+ YEARS (1 of 1 - PCV) 05/10/19 93 ZOSTER VACCINE (1 of 2) 1993 RSV VACCINE (60+ or ) (1 - 1-dose 75+ series) 2018 INFLUENZA VACCINE (#1) 2025 Medical Devices Implanted Type Area Pipe Stress Engineer Device Identifier Shelf Expiration Date Model / Serial / Lot Lens Iol [employer]ecnis Ey[employer]ance 21.5 [id number] - [id number] Implanted:Qty: 1 on 01/16/2024 by Leo Guadarrama MD at [facility] Lens Right: Eye [employer] 05/20/2026 [id number] / [id number] / Lens Iol Tecnis Eyhance 22.0 [id number] - [id number] Implanted:Qty: 1 on 02/27/2024 by Leo Guadarrama MD at [facility] Lens Left: Eye [employer] 10/15/2026 [id number] / [id number] / Insurance [facility] DUAL COMPLETE HMO DSNP [facility] [id number] MEDICAID [place] Advance Directives For more information, please contact: [phone] * Full Code (Latest Code Status on File) Date Activated Date Inactivated Comments 02/27/2024 11:55 AM 02/27/2024 3:00 PM * Full Code Date Activated Date Inactivated Comments 01/16/2024 1:30 PM 01/16/2024 4:19 PM
--- OUTSIDE RECORDS SUMMARY | 2025-02-18 12:15 | XMS_ITS | Encounter Summary ---
Author Organization [facility] Address [address] [place] [address] Phone Care Team Providers Care Dairy Processing Equipment Operator Name Role Phone Leda Reyes DO Primary Care Provider [phone] Salvador Wayne DO Primary Care Provider [phone] Encounter Details Date Type Department Care Team (Late st Contact Info) Description 04/11/2023 Telephone [facility] MED[facility] BUILDING [address] [address] Zoe Woodall FNP [address] [place] [address] Social History Tobacco Use Types Packs/Day Years Used Date Smoking Tobacco: Former Cigarettes Smokeless Tobacco: Never Alcohol Use Standard Drinks/Week Comments Yes 0 (1 standard drink = 0.6 oz pur e alcohol) occasional PHQ-2 Answer Date Recorded Patient Health Questionnaire-2 Score 0 04/09/2023 PRAPARE - Transportation Answer Date Re corded In the past 12 months, has l ack of transportation kept you from medical appointments or from getting medications? No 08/2022 In the past 12 months, has l ack of transportation kept you from meetings, work, or from getting things needed for daily living? No 04/09/2023 Sex and Gender Information Value Date Recorded Sex Assigned at Not on file Legal Sex Male 9:28 AM CDT Gender Identity Not on file Sexual Orientation Not on file Occupation Industry Job Start Date Job End Date Not on file Not on file Not on file Not on file documented as of this encounter Miscellaneous Notes * Telephone Encounter - Jyoti Taylor - 04/11/2023 1:52 PM CDT called to let the Zoe know Jeison does have some stomach pain before and after he has a BM as well, lasts from 10- 30 mins afterwards. States they were talking about it today and thought theyhad forgotten to mention it and wanted to call just in case. documented in this encounter Plan of Treatment Not on file documented as of this encounter Visit Diagnoses Not on filedocumented in this encounter Care Teams Dairy Processing Equipment Operator Relationship Specialty Start Date End Date Leda Reyes DO [address] [facility] [address] [place] [address] PCP - General Family Medicine 04/09/23 04/17/23 Salvador Wayne DO [address] [place] [address] PCP - General Family Medicine 04/18/23 documented as of this encounter
--- OUTSIDE RECORDS SUMMARY | 2025-02-18 12:15 | XMS_ITS | Encounter Summary ---
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
--- OUTSIDE RECORDS SUMMARY | 2025-02-18 12:15 | XMS_ITS | Clinical Summary ---
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
--- OUTSIDE RECORDS SUMMARY | 2025-02-18 12:15 | XMS_ITS | Encounter Summary ---
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
--- OUTSIDE RECORDS SUMMARY | 2025-02-18 12:15 | XMS_ITS | Encounter Summary ---
Author Organization [facility] Address [address] [address] Phone Care Team Providers Care Reel Assembler Name Role Phone Ldea Reyes DO Primary Care Provider [phone] Salvador Wayne DO Primary Care Provider [phone] Reason for Visit * Reason Onset Date Comments Referral Question 03/05/2023 Encounter Details Date Type Department Care Team (Late st Contact Info) Description 03/05/2023 Telephone UROLOGY CLINIC MEDICAL OFFICE BUILDING [address] [id number] Bebeto Sylvester MD [address] [id number] Referral Question Social History Tobacco Use Types Packs/Day Years Used Date Smoking Tobacco: Never Assessed Sex and Gender Information Value Date Recorded Sex Assigned at Not on file Legal Sex Male 9:28 AM CDT Gender Identity Not on file Sexual Orientation Not on file documented as of this encounter Miscellaneous Notes * Telephone Encounter - Khadijah Gutierrez - 03/05/2023 10:23 AM CDT Spoke with let her know we have not Rc'd Referral yet. I gave her both of our Fax numbers to have Office refax again. * Telephone Encounter - Crispin Evelynallison - 03/05/2023 9:34 AM CDT Jeison had someone call in to ask about a referral for him to see Urology. They said they sent it on 02/21 and then it was also resent on 03/01. Can we look and [place] call and update them? documented in this encounter Plan of Treatment Not on file documented as of this encounter Visit Diagnoses Not on filedocumented in this encounter Care Teams Reel Assembler Relationship Specialty Start Date End Date Leda Reyes DO [address] [address] PCP - General Family Medicine 04/09/23 04/17/23 Salvador Wayne DO [address] [place] [address] PCP - General Family Medicine 04/18/23 documented as of this encounter
--- OUTSIDE RECORDS SUMMARY | 2025-02-18 12:15 | XMS_ITS | Encounter Summary ---
Author Organization [facility] Address [address] [address] Phone Care Team Providers Care Finance Analyst Name Role Phone Salvador Wayne Primary Care Provider [phone] Reason for Visit * Reason Comments Med Refill Encounter Details Date Type Department Care Team (Late st Contact Info) Description 06/19/2024 Refill [facility] MED[facility] OFFICE BUILDING [address] [address] Zoe Woodall FNP [address] [place] [address] Exocrine pancreatic insufficiency Social History Tobacco Use Types Packs/Day Years [...] things needed for daily living? No 04/09/2023 [facility] - Mental Health Answer Date Recorde [...] encounter Miscellaneous Notes * Telephone Encounter - Nancy Lockwood RN - 06/25/2024 2:45 PM CST Provider no longer at [facility] ESS TECH documented in this encounter Plan of Treatment Not on file documented as of this encounter Visit Diagnoses Diagnosis Exocrine pancreatic insufficiency Other specified disease of pancreas documented in this encounter Care Teams Finance Analyst Relationship Specialty Start Date End Date Salvador Wayne DO [address] [place] [address] PCP - General Family Medicine 04/18/23 documented as of this encounter
--- OUTSIDE RECORDS SUMMARY | 2025-02-18 12:15 | XMS_ITS | Clinical Summary ---
Author Organization [employer] Address [address] [place] [address] Phone Care Team Providers Care Logistics/Shipper Name Role Phone Salvador Wayne DO Primary Care Provider [phone] Allergies Active Allergy Reactions Criticality Noted Date Comments Amoxicillin Nausea/Vomiting Low 04/09/2023 Dicyclomine Other 04/09/2023 confusion Codeine Shortness of breath High 04/09/2023 Meperidine Shortness of breath High 04/09/2023 Oxycodone Shortness of breath High 04/09/2023 Medications ALPRAZolam (Xanax) 0.25 mg tablet Take 0.25 mg by mouth at night if needed for anxiety. Active tiZANidine (Zanaflex) 4 mg capsule Take 4 mg by mouth. 1-2 times a day Active lisinopriL (Prinivil, Zestril) 20 mg tablet Take 20 mg by mouth 2 (two) times a day. Active lansoprazole (Prevacid) [address] capsule Take 30 mg by mouth 1 (one) time each day before breakfast. Do not crush or chew. Active famotidine (Pepcid) 40 mg tablet Take 40 mg by mouth 1 (one) time each day. Active metFORMIN (Glucophage) 500 mg tablet Take 500 mg by mouth 2 (two) times a day with meals. Active amLODIPine (Norvasc) 5 mg tablet Take 5 mg by mouth 1 (one) time each day. Active sucralfate (Carafate) 1 gram tablet Take 1 g by mouth in the morning and 1 g at noon and 1 g in the evening and 1 g before bedtime. Active pancrelipase, Hkv-Ovwh-Xzqc, (Creon) 36,000-114,000- 180,000 unit capsule,delayed release(DR/EC) capsuleIndications :Exocrine pancreatic insufficiency 2 caps po during each meal, 1 cap po during each snack 240 capsule 3 3 Active ondansetron (Zofran) 8 mg tablet Take 8 mg by mouth every 8 (eight) hours if needed for nausea. 3 Active tadalafiL (Cialis) 20 mg tabletIndications: Erectile dysfunction due to diseases classified elsewhere Take 1 tablet (20 mg total) by mouth 1 (one) time each day if needed for erectile dysfunction. 30 tablet 3 3 Active Active Problems No known active problems Family History Medical History Relation Comments No Known Problems Father No Known Problems Mother Colon cancer Neg Hx Relation Status Comments Father Mother Social History Tobacco Use Types Packs/Day Years Used Date Smoking Tobacco: Former Cigarettes Smokeless Tobacco: Never Tobacco Cessation:Counseling Given: Not [...] things needed for daily living? No 04/09/2023 [facility] - Mental Health Answer Date Recorde [...] file Not on file Not on file Last Filed Vital Signs Vital Sign Reading Time Taken Comments Blood Pressure 155/76 2023 8:58 AM CDT Pulse 57 2023 8:58 AM CDT Temperature 36.3 C (97.3 F) 04/09/2023 9:30 AM CDT Respiratory Rate - - Oxygen Saturation 98% 2023 8:58 AM CDT Inhaled Oxygen Concentration - - Weight 76.2 kg (168 lb) 2023 8:58 AM CDT Height 182.9 cm (6') 2023 8:58 AM CDT Body Mass Index 22.78 2023 8:58 AM CDT Plan of Treatment Health Maintenance Due Date Last Done Comments Lipid Panel 1945 Depression Screening 1961 Social Drivers of Health (SDoH) 1961 Zoster Vaccines (1 of 2) 1993 Medicare Initial AWV G0438 05/09/2009 DTaP,Tdap,and Td Vaccines (2 - Td or Tdap) 03/15/2016 02/16/2016 MMR Vaccines (1 of 1 - Standard series) 03/15/2016 Varicella Vaccines (1 of 2 - 13+ 2-dose series) 03/15/2016 RSV Vaccines (1 - 1-dose 75+ series) 2018 COVID-19 Vaccine (1 - 2023- season) 2024 Complete Fall Risk Assessment 04/09/2024 04/09/2023, 04/09/2023, 04/09/2023 Influenza Vaccine (#1) 2025 3, 04/26/2022, 03/09/2021, Additional history exists Pneumococcal Vaccine: 50+ Years Completed 03/17/2020, 2018, 2018 Pneumococcal Vaccine Aged Out 03/17/2020, 05/10/20 18 No longer eligible based on patient's age to complete this topic HIB Vaccines Aged Out No longer eligi ble based on patient's age to complete this topic HPV Vaccines Aged Out No longer eligi ble based on patient's age to complete this topic Hepatitis A Vaccines Aged Out No long er eligible based on patient's age to complete this topic Hepatitis B Vaccines Aged Out No long er eligible based on patient's age to complete this topic IPV Vaccines Aged Out No longer eligi ble based on patient's age to complete this topic Meningococcal B Vaccine Aged Out No l onger eligible based on patient's age to complete this topic Meningococcal Vaccine Aged Out No yasir glenis eligible based on patient's age to complete this topic Rotavirus Vaccines Aged Out No longer eligible based on patient's age to complete this topic Insurance [facility]ICARE [facility] Care Teams Logistics/Shipper Relationship Specialty Start Date End Date Salvador Wayne DO [address] [place], [place] [address] PCP - General Family Medicine 04/18/23
--- OUTSIDE RECORDS SUMMARY | 2025-02-18 12:15 | XMS_ITS | Encounter Summary ---
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
--- OUTSIDE RECORDS SUMMARY | 2025-02-18 12:15 | XMS_ITS | Encounter Summary ---
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
--- OUTSIDE RECORDS SUMMARY | 2025-02-18 12:15 | XMS_ITS | Encounter Summary ---
Author Organization [facility] Address [address] [address] Phone Care Team Providers Care Custom Car Builder Name Role Phone Leda Reyes DO Primary Care Provider [phone] Salvador Wayne DO Primary Care Provider [phone] Encounter Details Date Type Department Care Team (Late st Contact Info) Description 04/09/2023 Telephone [facility] BU[facility]ING [address] [address] Zoe Woodall FNP [address] [place] [address] Social History Tobacco Use Types Packs/Day [...] on file documented as of this encounter Functional Status * Over the past 2 weeks, how often have you been bothered by any of the following problems? Question Answer Date of Assessment Author Little interest or pleasure in doing things Not at all 04/09/2023 9:36 AM CDT Kristy Michael Feeling down, depressed, or hopeless Not at all 04/09/2023 9:36 AM CDT Kristy Michael Patient Health Questionnaire -2 Score 0 04/09/2023 9:36 AM CDT Kristy Michael documented as of this encounter Miscellaneous Notes * Telephone Encounter - Jyoti Baezaer - 04/09/2023 3:25 PM CDT Has not been received yet if so, but will send a request. * Telephone Encounter - Jyoti Baezaer - 04/09/2023 2:06 PM CDT Please see EGD report from [facility] documented in this encounter Plan of Treatment Not on file documented as of this encounter Visit Diagnoses Not on filedocumented in this encounter Care Teams Custom Car Builder Relationship Specialty Start Date End Date Leda Reyes DO [address] [address] PCP - General Family Medicine 04/09/23 04/17/23 Salvador Wayne DO [address] [place] [address] PCP - General Family Medicine 04/18/23 documented as of this encounter
== END 2025-02-16 19:12 | disposition home or self-care (01) ==
PROVIDERS: Emergency Provider Physician Assistant; PCP Family Medicine
DX: S62.610A Displaced fracture of proximal phalanx of right index finger, initial encounter for closed fracture (principal); V89.2XXA Person injured in unspecified motor-vehicle accident, traffic, initial encounter; E11.9 Type 2 diabetes mellitus without complications; Z79.84 Long term (current) use of oral hypoglycemic drugs
CPT/HCPCS: 36415; 70450; 70486; 71045; 72125; 73130; 80053; 81001; 85025; 96372; 96374; 99285; J1885; J2360

== ENCOUNTER 2025-03-31 08:42 | Inpatient (IN) | payer OTHER, MEDICAID, SELFPAY ==
[2025-03-31] VITALS (15 sets, daily range): BP systolic 106–140; BP diastolic 69–91; PULSE 13–76; RESP 15–73; TEMP 36.6–36.7; O2SAT 94–99; BMI 21.7
--- NOTE | 2025-03-31 08:45 | ECG_ITS ---
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 Measurements Intervals [place] Rate: 73 P: 70 IA: 220 QRS: 41 QRSD: 80 T: 49 QT: 363 QTc: 401 Interpretive Statements SINUS RHYTHM WITH FIRST DEGREE AV BLOCK Compared to ECG 12/21/2023 15:41:18 First degree AV block now present Electronically Signed On 04-01-2025 21:29:58 CDT by Ar Nieves M.D. [email or web address]
--- OUTSIDE RECORDS SUMMARY | 2025-03-31 08:48 | XMS_ITS | Encounter Summary ---
Author Organization [facility] Address [address] [address] Phone Care Team Providers Care Engine Dynamometer Tester Name Role Phone Salvador Wayne Primary Care Provider [phone] Encounter Details Date Type Department Care Team (Late st Contact Info) Description 05/28/2023 Telephone [facility] MED[facility] BUILDING [phone] [address] Zoe Woodall FNP [address] [place] [address] Social History Tobacco Use Types Packs/Day [...] things needed for daily living? No 04/09/2023 [facility] - Mental Health Answer Date Recorde [...] 05/28/2023 10:41 AM CST Referring provider notified. PING HAND * Telephone Encounter - Kristy Michael - 05/28/2023 9:47 AM CST Sending to Zoe for FYI PING HAND * Telephone Encounter - Jyoti Mercer - 05/28/2023 8:43 AM CST FYI--- Patient's called to cancel follow up appointment on 07/11/[address] scan on 06/20/23. When I asked if she was wanting to reschedule, she stated He wants to go ahead and just cancel everything, he doesn't feel like he's getting much taken care of. PING HAND documented in this encounter Plan of Treatment Not on file documented as of this encounter Visit Diagnoses Not on filedocumented in this encounter Care Teams Engine Dynamometer Tester Relationship Specialty Start Date End Date Salvador Wayne DO [address] [place] [address] PCP - General Family Medicine 04/18/23 documented as of this encounter
--- OUTSIDE RECORDS SUMMARY | 2025-03-31 08:48 | XMS_ITS | Clinical Summary ---
Author Organization [employer] Address [address] [place] [address] Phone Care Team Providers Care Is Manager Name Role Phone Salvador Wayne DO Primary Care Provider [phone] Allergies Active Allergy Reactions Criticality Noted Date [...] and 1 g before bedtime. Active pancrelipase, Lag-Ohvi-Vtin, (Creon) 36,000-114,000- 180,000 unit capsule,delayed release(DR/EC) capsuleIndications [...] things needed for daily living? No 04/09/2023 [facility] - Mental Health Answer Date Recorde [...] Date Last Done Comments Lipid Panel 1945 MMR Vaccines (1 of 1 - Standard series) 1944 Varicella Vaccines (1 of 2 - 13+ 2-dose series) 1956 Depression Screening 1961 Social Drivers of Health (SDoH) 1961 Zoster Vaccines (1 of 2) 1993 Medicare Initial AWV G0438 05/09/2009 DTaP,Tdap,and Td Vaccines (2 - Td or Tdap) 03/15/2016 02/16/2016 RSV Vaccines (1 - 1-dose 75+ series) 2018 Complete Fall Risk Assessment 04/09/2024 04/09/2023, 04/09/2023, 04/09/2023 COVID-19 Vaccine ( season) 2025 Influenza Vaccine (#1) 2025 3, 04/26/2022, 03/09/2021, [...] age to complete this topic Insurance MEDICARE [employer] Care Teams Is Manager Relationship Specialty Start Date End Date Salvador Wayne DO [address] [place] [facility] [place] [address] PCP - General Family Medicine 04/18/23
--- OUTSIDE RECORDS SUMMARY | 2025-03-31 08:48 | XMS_ITS | Encounter Summary ---
Author Organization [facility] Address [address] [facility] Attn: Epic Prelude ADT DIVYA STAHL [address] Care Team Providers Care Cordwood Cutter Helper Name Role Phone Unavailable Primary Care Provider Unavailabl e Encounter Details Date Type Department Care Team (Latest Contact Info) Description 10/11/1995 Emergency Reilly Tellez, DO [address] [place] [phone] Social History Tobacco Use Types Packs/Day Years Used Date Smoking Tobacco: Never Assessed Sex and Gender Information Value Date Recorded Sex Assigned at Not on file 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
--- OUTSIDE RECORDS SUMMARY | 2025-03-31 08:48 | XMS_ITS | Encounter Summary ---
Author Organization [facility] Address [address] [address] Phone Care Team Providers Care Oil Producer Name Role Phone Salvador Wayne Primary Care Provider [phone] Reason for Visit * Reason Comments Med Refill Encounter Details Date Type Department Care Team (Late st Contact Info) Description 06/19/2024 Refill [facility] BUILDING [phone] [address] Zoe Woodall FNP [address] [place] [address] Exocrine pancreatic insufficiency Social History Tobacco [...] things needed for daily living? 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
--- OUTSIDE RECORDS SUMMARY | 2025-03-31 08:48 | XMS_ITS | Encounter Summary ---
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
--- OUTSIDE RECORDS SUMMARY | 2025-03-31 08:48 | XMS_ITS | Encounter Summary ---
Author Organization [facility] Address [address] [address] Phone Care Team Providers Care Pressroom Supervisor Name Role Phone Leda Reyes DO Primary Care Provider [phone] Salvador Wayne DO Primary Care Provider [phone] Reason for Visit * Reason Onset Date Comments Referral Question 03/05/2023 Encounter Details Date Type Department Care Team (Late st Contact Info) Description 03/05/2023 Telephone [facility] MEDICAL OFFICE BUILDING [phone] [phone] Bebeto Sylvester MD [address] [phone] Referral Question Social History Tobacco Use Types [...] on filedocumented in this encounter Care Teams Pressroom Supervisor Relationship Specialty Start Date End Date Leda Reyes DO [address] [address] PCP - General Family Medicine 04/09/23 04/17/23 Salvador Wayne DO [address] [place] [address] PCP - General Family Medicine 04/18/23 documented as of this encounter
--- OUTSIDE RECORDS SUMMARY | 2025-03-31 08:48 | XMS_ITS | Encounter Summary ---
Author Organization [facility] Address [address] [address] Phone Care Team Providers Care Vp Patient Name Role Phone Leda Reyes DO Primary Care Provider [phone] Salvador Wayne DO Primary Care Provider [phone] Encounter Details Date Type Department Care Team (Late st Contact Info) Description 04/09/2023 Telephone [facility] MED[facility] OFFICE BUILDING [address] [address] Zeo Woodall FNP [address] [place] [address] Social History Tobacco Use Types Packs/Day [...] PM CDT Please see EGD report from [facility] documented in this encounter Plan of Treatment Not on file documented as of this encounter Visit Diagnoses Not on filedocumented in this encounter Care Teams Vp Patient Relationship Specialty Start Date End Date Leda Reyes DO [address] [address] PCP - General Family Medicine 04/09/23 04/17/23 Salvador Wayne DO [address] [place] [address] PCP - General Family Medicine 04/18/23 documented as of this encounter
--- OUTSIDE RECORDS SUMMARY | 2025-03-31 08:48 | XMS_ITS | Encounter Summary ---
Author Organization [facility] Address [address] [address] Phone Care Team Providers Care Pvc Monitor Name Role Phone Leda Reyes DO Primary Care Provider [phone] Salvador Wayne DO Primary Care Provider [phone] Encounter Details Date Type Department Care Team (Late st Contact Info) Description 04/11/2023 Telephone [facility] MED[facility] OFFICE BUILDING [address] [address] Zoe Woodall FNP [address] [place] [address] Social History Tobacco Use Types Packs/Day [...] on filedocumented in this encounter Care Teams Pvc Monitor Relationship Specialty Start Date End Date Leda Reyes DO [address] [facility] [address] [place] [address] PCP - General Family Medicine 04/09/23 04/17/23 Salvador Wayne DO [address] [place] [address] PCP - General Family Medicine 04/18/23 documented as of this encounter
--- OUTSIDE RECORDS SUMMARY | 2025-03-31 08:48 | XMS_ITS | Encounter Summary ---
Author Organization [facility] Address [address] [facility] Attn: Epic Prelude ADT DIVYA STAHL [address] Care Team Providers Care Curve Cleaner Name Role Phone Unavailable Primary Care Provider Unavailabl e Encounter Details Date Type Department Care Team (Latest Contact Info) Description 10/31/1995 Emergency Reilly Tellez, DO [address] [place] [phone] Social History Tobacco Use Types Packs/Day Years Used Date Smoking Tobacco: Never Assessed Sex and Gender Information Value Date Recorded Sex Assigned at Not on file 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
--- OUTSIDE RECORDS SUMMARY | 2025-03-31 08:48 | XMS_ITS | Encounter Summary ---
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
--- OUTSIDE RECORDS SUMMARY | 2025-03-31 08:48 | XMS_ITS | Encounter Summary ---
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
--- OUTSIDE RECORDS SUMMARY | 2025-03-31 08:48 | XMS_ITS | Encounter Summary ---
Author Organization [facility] Address [address] [place] [address] Care Team Providers Care Combination Window Installer Name Role Phone Unavailable Primary Care Provider Unavailabl e Encounter Details Date Type Department Care Team (Late st Contact Info) Description 03/06/2008 Emergency [facility] Emergency Department [address] 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 Gender Identity Not on file Sexual [...] (03/07/2008 5:20 AM CDT) ANTIBODY SCREEN Negative [facility] Blood specimen (specimen) 03/07/2008 5:20 AM CDT 03/07/2008 5:20 AM CDT Salvador Rowland MD BLOOD BANK ORDERABLES Fin al Result Performing Organization Address City/[facility] de Phone Number INTERFACE SYSTEM Refer to clinic/hospital department [facility] CLIA# [id number] [address] [place] [address] * ABORH TYPING (03/07/2008 5:20 AM CDT) ABO/RH TYPE O Positive [facility] Blood specimen (specimen) 03/07/2008 5:20 AM CDT 03/07/2008 5:20 AM CDT Salvador Rowland MD BLOOD BANK ORDERABLES Fin al Result Performing Organization Address [facility] de Phone Number INTERFACE SYSTEM Refer to clinic/hospital department [facility] CLIA# [id number] [address] [place] [address] * PT AND APTT (03/07/2008 5:20 AM CDT) PTT 31.7 22.5 - 36.5 Secs [facility] Comment: Therapeutic Range: Hi-level PE/DVT heparin protocol 80.1 -95.0 sec Lo-level PE/DVT heparin protocol 67.1 - 80.0 sec Cardiac Heparin Protocol 67.1 - 85.0 sec Neuro Heparin Protocol 67.1 - 80.0 sec As of 09/26/2007 note change in APTT Normal Range. PROTIME 15.0 12.8 - 15.8 Secs [facility] Comment:ansiAs of 07/05/2007 note change in normal range. INR 1.1 [facility] Comment: Expected Values for INR: DVT/PE Goal INR 2.5; range 2.0 - 3.0 Valve Replacement Tissue Goal INR 2.5; range 2.0 - 3.0 Mechanical Goal INR 3.0; range 2.5 - 3.5 POST-AR Goal INR 2.5; range 2.0 - 3.0 or Goal 3.0; range 2.5 - 3.5 Atrial Fibrillation Goal INR 2.5; range 2.0 - 3.0 Ischemic Stroke Goal INR 2.5; range 2.0 - 3.0 For additional information see Guidelines for Anticoagulation available from the pharmacy Christ [facility]eno [phone] Blood specimen (specimen) 03/07/2008 5:20 AM CDT 03/07/2008 5:20 AM CDT us Salvador Rowland MD HEMATOLOGY ORDERABLES Osvaldo fredy INTERFACE SYSTEM Refer to clinic/hospital department [facility] CLIA# [id number] [address] [place] [address] * (ABNORMAL) CBC WITH DIFFERENTIAL (03/07/2008 5:20 AM CDT) NEUTROPHIL ABSOLUTE 4.3 2.0 - 8.0 K/ul [facility] NEUTROPHILS 52.8 42.2 - 75.2 % [facility] HEMATOCRIT 44.5 41.0 - 53.0 % [facility] EOSINOPHILS 1.5 0.0 - 7.0 % [facility] PLATELETS 127(L) 140 - 440 K/ul [facility] EOSINOPHIL ABSOLUTE 0.1 0.0 - 0.7 K/ul [facility] RBC 4.95 4.60 - 6.20 Mil/ul [facility] LYMPHOCYTES 38.6 24.0 - 44.0 % [facility] MCHC 36.0(H) 30.0 - 35.0 g/dL [facility] LYMPHOCYTE ABSOLUTE 3.1 1.2 - 4.0 K/ul [facility] MCV 89.9 84.0 - 103.0 Fl [facility] MPV 10.7 8.9 - 12.8 Fl [facility] BASOPHILS ABSOLUTE 0.0 0.0 - 0.2 K/ul [facility] BASOPHILS 0.4 0.0 - 1.0 % [facility] HEMOGLOBIN 16.0 14.0 - 18.0 g/dL [facility] RDW 13.2 11.0 - 14.5 % [facility] MONOCYTE ABSOLUTE 0.5 0.1 - 0.6 K/ul [facility] MONOCYTES 6.7 2.0 - 10.0 % [facility] WBC 8.1 4.8 - 10.8 K/ul [facility] MCH 32.3 27.0 - 34.0 pg [facility] Blood specimen (specimen) 03/07/2008 5:20 AM CDT 03/07/2008 5:20 AM CDT Salvador Rowland MD HEMATOLOGY ORDERABLES Fin al Result INTERFACE SYSTEM Refer to clinic/hospital department [facility] IA# [id number] [address] [place] [address] * (ABNORMAL) COMPREHENSIVE METABOLIC PANEL (03/07/2008 5:20 AM CDT) CREATININE 1.0 0.7 - 1.5 mg/dL [facility] ALT 33 4 - 36 IU/L [facility] CALCIUM 9.7 8.4 - 10.5 mg/dL [facility] OSMOLALITY, CALCULATED 291 275 - 295 mOsm/Kg [facility] GLUCOSE 127(H) 70 - 110 mg/dL [facility] ALKALINE PHOSPHATASE 59 25 - 100 U/L [facility] CHLORIDE 107 95 - 110 mEq/L [facility] ALBUMIN/GLOBULIN RATIO 1.8 1.0 - 2.3 [facility] TOTAL PROTEIN 7.3 6.3 - 8.2 g/dL [facility] SODIUM 141 136 - 145 mEq/L [facility] BILIRUBIN TOTAL 1.6(H) 0.3 - 1.2 mg/dL [facility] BUN 12 9 - 20 mg/dL [facility] CO2 28 22 - 32 mmol/l [facility] ANION GAP 10 9 - 20 mEq/L [facility] AST 24 8 - 33 U/L [facility] POTASSIUM 4.2 3.5 - 5.0 mEq/L [facility] GLOBULIN (CALC) 2.6 2.4 - 3.9 g/dL [facility] ALBUMIN 4.7 3.5 - 5.0 g/dL [facility] Blood specimen (specimen) 03/07/2008 5:20 AM CDT 03/07/2008 5:20 AM CDT Salvador Rowland MD CHEMISTRY ORDERABLES Kat rousseau Result INTERFACE SYSTEM Refer to clinic/hospital department [facility] CLIA# [id number] [place] [address] documented in this encounter Visit Diagnoses Not on filedocumented in this encounter
--- OUTSIDE RECORDS SUMMARY | 2025-03-31 08:48 | XMS_ITS | Clinical Summary ---
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
--- OUTSIDE RECORDS SUMMARY | 2025-03-31 08:48 | XMS_ITS | Clinical Summary ---
Author Organization [facility] Address [address] [facility] Attn: Epic Prelude ADT [place] [address] Care Team Providers Care Him Specialist Name Role Phone Unavailable Primary Care Provider [...] drinks 3-4 glasses of wine a year Feeling Safe Answer Date Recorded Are you in a relationship wi th someone who hurts you emotionally and/or physically? 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 05/20/2026 [id number] / [id number] / Lens Iol Tecnis Eyhance 22.0 [id number] - [id number] Implanted:Qty: 1 on 02/27/2024 by Leo Guadarrama MD at [facility] Lens Left: Eye [employer] 10/15/2026 [id number] / [id number] / Insurance [facility] DUAL COMPLETE HMO DSNP [facility] [id number] MEDICAID [place] Advance Directives For more information, please contact: [phone] * Full Code (Latest Code Status on File) Date Activated Date Inactivated Comments 02/27/2024 11:55 AM 02/27/2024 3:00 PM * Full Code Date Activated Date Inactivated Comments 01/16/2024 1:30 PM 01/16/2024 4:19 PM
--- OUTSIDE RECORDS SUMMARY | 2025-03-31 08:48 | XMS_ITS | Encounter Summary ---
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
--- OUTSIDE RECORDS SUMMARY | 2025-03-31 08:48 | XMS_ITS | Encounter Summary ---
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
--- OUTSIDE RECORDS SUMMARY | 2025-03-31 08:48 | XMS_ITS | Encounter Summary ---
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
[2025-03-31 09:22] LABS: Hematocrit 39.0 % (37-53); Hemoglobin 14.20 g/dL (11.27-16.99); Mean Corpuscular HGB Conc 36.4 g/dL (30-55); Mean Corpuscular Hemoglobin 31.2 pg (27-33); Mean Corpuscular Volume 85.7 fl (82-101); Nucleated Red Blood Cells % 0 %; Platelet Count 156 10^3/cmm (157-399); Red Blood Count 4.55 10^6/uL (3.85-5.65); White Blood Count 6.24 10^3/uL (3.29-11.43)
[2025-03-31 09:34] LABS: Troponin(5th) Baseline 17 ng/L (0-15)
[2025-03-31 09:38] LABS: Alanine Aminotransferase 13 U/L (0-41); Albumin Level 4.4 g/dL (3.5-5.2); Alkaline Phosphatase 91 U/L (40-130); Anion Gap 17.9 (5-19); Aspartate Amino Transferase 13 U/L (0-40); Blood Urea Nitrogen 16 mg/dL (8-23); Calcium 8.9 mg/dL (8.5-10.5); Carbon Dioxide 22 mmol/L (22-29); Chloride 103 mmol/L (98-107); Creatinine Clr Calc Pharmacy 68.8242; Globulin 2.4 g/dL (1.3-4.6); Glucose 154 mg/dL (65-115); Osmolality Calculated 292 mOsm/kg (285-295); Potassium 3.9 mmol/L (3.5-5.1); Sodium 139 mmol/L (136-145); Total Protein 6.8 g/dL (6.6-8.7)
--- NOTE | 2025-03-31 11:11 | ECG_ITS ---
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 Measurements Intervals [place] Rate: 65 P: 56 UT: 218 QRS: 48 QRSD: 87 T: 54 QT: 387 QTc: 404 Interpretive Statements SINUS RHYTHM WITH FIRST DEGREE AV BLOCK Compared to ECG 03/31/2025 08:45:32 NO SIGNIFICANT CHANGE Electronically Signed On 04-01-2025 22:04:08 CDT by Ar Nieves M.D. [email or web address]
[2025-03-31 11:38] LABS: Troponin 5 2HR 28.72 ng/L (0-15)
[2025-03-31 11:45] LABS: Troponin 5 2HR Delta 11.72 ABS# (0-10)
--- NOTE | 2025-03-31 11:56 | ECG_ITS ---
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 Measurements Intervals [place] Rate: 69 P: 16 DE: 180 QRS: 21 QRSD: 80 T: 29 QT: 374 QTc: 403 Interpretive Statements SINUS RHYTHM Compared to ECG 03/31/2025 11:09:05 First degree AV block no longer present NO SIGNIFICANT CHANGE Electronically Signed On 04-01-2025 22:04:51 CDT by Ar Nieves M.D. [email or web address]
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
[2025-03-31] MEDS: heparin 5,000 unit/mL INJ 1 mL IVP (12:45)
[2025-03-31] MEDS: heparin drip 25,000 UNIT/500 ML PREMIX 21 UNIT IV (12:50)
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
--- NOTE | 2025-03-31 14:58 | USCV_ITS ---
Javier Jeison Age: 79 Gender: M : 1945 Exam Date: 03/31/2025 16:06 Ordering Phys: Christina Basurto Technologist: FRANCOIS [place] [facility] [place]: elevated trop BP: 123 / 71 HR: 69 Rhythm: Sinus Technical Quality: Adequate MEASUREMENTS (Male / Female) Normal Values 2D ECHO LV Diastolic Diameter PLAX 4.8 cm 4.2 - 5.9 / 3.9 - 5.3 cm IVS Systolic Thickness 1.4 cm LVPW Diastolic Thickness 1.0 cm 0.6 - 1.0 / 0.6 - 0.9 cm LVPW Systolic Thickness 1.5 cm LVOT Diameter 2.0 cm LV Ejection Fraction 2D Teich 56.7 % LV Ejection Fraction MOD 4C 61.6 % LV Ejection Fraction MOD 2C 58.8 % LV Ejection Fraction 2C AL 61.3 % LA Diameter 3.0 cm RA Systolic Volume 4C AL 53.3 ml RA Systolic Volume 4C MOD 50.9 ml LA Sys Volume AL 39.6 cm cubed LA Sys Volume Index AL 20.7 cm cubed/m squared Aorta at Sinotubular Diameter 2.4 cm M-MODE LA Ao Ratio MM 1.2 AV Cusp Separation MM 1.6 cm DOPPLER AV Peak Velocity 124.0 cm/s LVOT Peak Velocity 105.0 cm/s AV Area Cont Eq vti 2.7 cm squared AV Area Cont Eq pk 2.8 cm squared MV Peak Velocity 85.0 cm/s MV Area PHT 3.2 cm squared Mitral E to A Ratio 1.0 TV Peak E Velocity 63.0 cm/s PV Peak Velocity 88.0 cm/s FINDINGS Left Ventricle Normal left ventricular cavity size. Apical septal and apical inferior wall segments not well visualized. All other myocardial segments with normal contraction. Globally normal EF, 58%. No regional wall motion abnormalities. Normal diastolic function. Right Ventricle Normal right ventricular size and systolic function. RVSP could not be calculated due to incomplete tricuspid regurgitation velocity profile. Right Atrium Normal right atrial size. Left Atrium Normal left atrial size. Mitral Valve No mitral valve stenosis. Trace mitral valve regurgitation. Aortic Valve No aortic valve stenosis. No aortic valve regurgitation. Aortic valve not well visualized. Tricuspid Valve No tricuspid valve regurgitation. No tricuspid valve stenosis. Pulmonic Valve No pulmonary valve stenosis. No pulmonary valve regurgitation. Pericardium No pericardial effusion. Aorta Normal size aortic root and proximal ascending aorta. IVC Inferior vena cava not visualized. CONCLUSIONS 1. Normal biventricular size. Globally normal LV systolic and RV function. Apical segments of the LV not well visualized. LV EF 58%. 2. No significant valvular abnormalitites. Ar Nieves MD, FACC (Electronically Signed) Final Date: 31 March 2025 19:31 S
[2025-03-31 15:38] LABS: Troponin 5 6HR 25.10 ng/L (0-15); Troponin 5 6HR Delta 8.10 ng/L (0-12)
[2025-03-31 19:30] LABS: Partial Thromboplastin Time 91.2 SECONDS (23.9-36.7)
[2025-04-01] VITALS (17 sets, daily range): BP systolic 113–167; BP diastolic 64–84; PULSE 56–78; RESP 7–24; TEMP 36.7–36.9; O2SAT 96–98
[2025-04-01 01:47] LABS: Hematocrit 38.7 % (37-53); Hemoglobin 13.70 g/dL (11.27-16.99); Mean Corpuscular HGB Conc 35.4 g/dL (30-55); Mean Corpuscular Hemoglobin 30.9 pg (27-33); Mean Corpuscular Volume 87.4 fl (82-101); Nucleated Red Blood Cells % 0 %; Platelet Count 157 10^3/cmm (157-399); Red Blood Count 4.43 10^6/uL (3.85-5.65); White Blood Count 6.18 10^3/uL (3.29-11.43)
[2025-04-01 02:01] LABS: Partial Thromboplastin Time 48.5 SECONDS (23.9-36.7)
[2025-04-01 02:12] LABS: Anion Gap 17.8 (5-19); Blood Urea Nitrogen 14 mg/dL (8-23); Calcium 8.8 mg/dL (8.5-10.5); Carbon Dioxide 23 mmol/L (22-29); Chloride 106 mmol/L (98-107); Creatinine Clr Calc Pharmacy 68.8242; Glucose 127 mg/dL (65-115); Magnesium 1.7 mg/dL (1.7-2.3); Osmolality Calculated 298 mOsm/kg (285-295); Potassium 3.8 mmol/L (3.5-5.1); Sodium 143 mmol/L (136-145)
[2025-04-01 08:32] LABS: Partial Thromboplastin Time 74.7 SECONDS (23.9-36.7)
--- NOTE | 2025-04-01 09:44 | PC.CHAP ---
Pastoral Care Encounter/Spiritual Assessment Type of Contact [] Declined client associate visit [] Patient/Family/Request visit [] Outpatient visit [] Follow-up visit [] Physician referral [] Code/Alert [x] Routine visit [] Staff referral [] Actively dying [] Patient sleeping [x] Family support [] [] Out of room [] Palliative care [] [] Receiving care in room [] Pre-surgical visit [] Trauma [] Long length of stay [] ICU visit [] Other: Relational/Emotional Strength [x] Patient feels connected with others/family/visitors/staff [] Distress [] Loneliness/isolation [] Abandonment Spirituality of Patient [x] Person of Demi [] Attends Quaker of their Demi [x] Believes in Prayer [] Reads Bible or Muslim materials [] There are Spiritual issues to be addressed Road [employer] Interventions [x] Prayer [x] Active listening [x] Non-anxious presence [x] Spiritual/emotional support [] Crisis/trauma care [] Spiritual counseling [] Bereavement support [] Provided bereavement packet [] Provided Bible/devotional materials [] Provided toy/stuffed animal, coloring book to patient or family member [] Provided Communion [] Anointing/Leonard [] Salvation [x] Completed spiritual assessment [] Other: Impact on Illness or Injury [] Angry [] Fearful [] Anxious [] Often cries [] Exhaustion [] Unable to work [] Unable to attend scientology [] Unable to walk/stand [] Unable to read [] Unable to drive [] Unable to eat/drink [] Unable to sleep [] Unable to be with family [] Patient intubated [] Other: Summary Time spent with patient 5 min
--- NOTE | 2025-04-01 11:17 | P.PN_ITS ---
Subjective 2 Subjective: planning for cath today. Vitals/I&O/Wt Last Vital Signs Temp 98.2 F 04/01/25 04:00 Pulse 63 04/01/25 09:00 Resp 7 L 04/01/25 09:00 BP 146/79 04/01/25 09:40 Pulse Ox 96 04/01/25 08:00 O2 Del Method Room Air 04/01/25 04:00 03/31/25 04/01/25 04/01/25 22:59 06:59 14:59 Intake Total 629.45 / 629.45 110.1 / 739.55 153.583 / 153.583 Balance 629.45 / 629.45 110.1 / 739.55 153.583 / 153.583 Weight last 48 hrs Weight 74.48 kg Weight 72.575 kg Physical Exam 2 Narrative: Physical Exam Const: no acute distress, average body habi tus and patient or iented x3 HENMT: normocephalic and atraumatic Eye: Equal, round and r eactive pupils and EOMs intact bilat erally Neck/C-Spine: full ROM, no lymph adenopathy and no JVD Lymph: no lymphadenopathy noted Resp: clear to auscultat ion bilaterally Cardio: regular rate, regu lar rhythm, S1 nor mal heart sound pr esent and S2 jamil l heart sound pres ent GI: Soft to palpation, non-tender and no masses Back/Pelvis: no CVA tenderness Extremity: full ROM and no pe edwardo edema Neuro: oriented x3 and CN 's II-XII intact b ilaterally Psych: mental status taylor sly normal, Normal thought process p resent, cooperativ e and normal affec t Data 04/01/25 01:25 04/01/25 01:25 A&P Assessment and plan 1. Non-ST elevation [place] (NSTEMI): 2. Unstable angina: 3. Elevated troponin: 4. Diabetes mellitus: Plan: Plan: 79 year old male presenting with chest pain. Chest pain - questionable history of prior AL in [place], however he was later told that he did not have any MIs - prior stress tests were negative, last was > 1 year ago - no history of cath, PCI or CABG - troponin initial 17, repeat increased to 28.72 - cardiology consulted: planning for cath this AM. - cont. heparin drip started in ER until after procedure. DMII - he takes metformin as OP - hold metformin with contrast procedure HTN - cont. amlodipine, lisinopril GERD - famotidine, PPI Hypophosphatemia - start oral replacement. PPx: on heparin drip Diet: HH, NPO after midnight Disposition - cath this AM. - Full code, up ad danilo - admited to CSU PDMP PDMP Reviewed: Not Reviewed Attestations 2 Medical Necessity Statement*: Ongoing inpatient for NTEMI, getting cath. Time Spent in Patient Care: 16 - 35 minutes (>than 50% of time sp ent in counselling and/or direct pt care on unit) . Coding Level of Care Code Acute Code for [facility] Fwd Diagnoses Non-ST elevation AL (NSTEMI) I21.4 Unstable angina I20.0 Elevated troponin R79.89 Diabetes mellitus E11.9
--- NOTE | 2025-04-01 11:28 | P.PN_ITS ---
<Statement entered by Ar Nieves MD - 04/01/25 16:55> Patient was evaluated and cared for in conjunction with an advanced practice practitioner. I personally saw the patient and reviewed the chart and all pertinent data. I discussed the patient in detail with the advanced practice practitioner. Please see their note for complete assessment and agreed upon plan of care for the patient. Subjective 2 Subjective: Unable to perform coronary angiogram today, will plan for tomorrow morning. He can eat today. He describes an ache in his chest at the moment, is resolving ad we speak, may be related to anxiety as he was saying he wanted to leave the hospial. I was able to convince him to stay for workup tomorrow morning. Discussed case with Dr Najera the production sorter. Vitals/I&O/Wt Last Vital Signs Temp 98.2 F 04/01/25 04:00 Pulse 63 04/01/25 09:00 Resp 7 L 04/01/25 09:00 BP 146/79 04/01/25 09:40 Pulse Ox 96 04/01/25 08:00 O2 Del Method Room Air 04/01/25 04:00 03/31/25 04/01/25 04/01/25 22:59 06:59 14:59 Intake Total 629.45 / 739.55 110.1 / 739.55 153.583 / 153.583 Balance 629.45 / 739.55 110.1 / 739.55 153.583 / 153.583 Weight last 48 hrs Weight 164 lb 3.2 oz Weight 160 lb Physical Exam 2 Const: COMMON NORMALS: no acute distress and patient oriented x3 GENERAL APPEARANCE: cooperative and comfortable ORIENTATION/CONSCIOUSNESS: Yes awake, Yes oriented to person, Yes oriented to place and Yes oriented to time Chest: COMMONS NORMALS: normal inspection of the chest and normal palpation of entire chest wall CHEST: Yes Symmetrical chest wall rise Resp: COMMON NORMALS: normal respiratory effort, No retractions, No use of accessory muscles and clear to auscultation bilaterally EFFORT & INSPECTION: Yes symmetric chest movement AUSCULTATION: clear to auscultation bilaterally Cardio: COMMON NORMALS: regular rate, regular rhythm, S1 normal heart sound present, S2 normal heart sound present, No gallops present (Cardio), No clicks present (Cardio), No murmurs present (Cardio) and No rub (Cardio) RATE: r egular rate RHYTHM: regular rhythm HEART SOUNDS: S1 normal heart sound present and S2 normal heart sound present PERIPHERAL PULSES: radial pulses present Extremity: COMMON NORMALS: no pedal edema Neuro: COMMON NORMALS: patient oriented x3 and moves all extremities S ENSORIUM/ORIENTATION: Yes oriented to person, Yes oriented to place and Yes oriented to time Data 04/01/25 01:25 04/01/25 01:25 A&P Assessment and plan 1. Non-ST elevation [place] (NSTEMI): 2. Unstable angina: 3. Diabetes mellitus: 4. HTN (hypertension): Plan: Will observe closely, if he reports chest pain will add nitropaste to his regimen. NPO after midnight. LHC tomorrow morning 0600. PDMP PDMP Reviewed: Not Reviewed Attestations 2 Medical Necessity Statement*: ischemic workup Coding Level of Care Code Acute Code for [facility] Diagnoses Non-ST elevation [place] (NSTEMI) I21.4 Unstable angina I20.0 Diabetes mellitus E11.9 HTN (hypertension) I10
[2025-04-01] MEDS: heparin drip 25,000 UNIT/500 ML PREMIX 19 UNIT IV (14:06)
[2025-04-01 14:43] LABS: Partial Thromboplastin Time 69.5 SECONDS (23.9-36.7)
--- NOTE | 2025-04-01 16:28 | PC.NURSE ---
Addendum entered by Hazel Stewart RN 04/01/25 17:15: No response from Dr Manrique via voalte, however, patient says chest pain is gone and is not wanting anything for pain. Original Note: patient reporting chest pain, Dr Manrique notified for nitro order.
--- NOTE | 2025-04-01 18:53 | ECG_ITS ---
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 Measurements Intervals [place] Rate: 71 P: 253 LA: 118 QRS: 53 QRSD: 73 T: 58 QT: 382 QTc: 416 Interpretive Statements TECHNICALLY POOR TRACING SINUS RHYTHM NONSPECIFIC T-WAVE ABNORMALITY ABNORMAL RHYTHM ECG Compared to ECG 03/31/2025 11:56:19 T-wave abnormality now present Electronically Signed On 04-01-2025 21:28:54 CDT by Ar Nieves M.D. [id number]
--- NOTE | 2025-04-01 19:06 | PC.NURSE ---
patient complained of chest pain, EKG taken, contacted MD for some type of relief for the chest pain, MD ordered 1 in nitro paste Q6Hr, orders entered
[2025-04-01] MEDS: nitroglycerin 1 gm/inch oint Pkt 1 INCH TOPICAL (19:10)
[2025-04-01 20:49] LABS: Partial Thromboplastin Time 69.2 SECONDS (23.9-36.7)
[2025-04-02] VITALS (7 sets, daily range): BP systolic 102–162; BP diastolic 59–98; PULSE 59–86; RESP 16–22; TEMP 36.4–36.5; O2SAT 95–97
[2025-04-02 02:28] LABS: Hematocrit 38.5 % (37-53); Hemoglobin 12.70 g/dL (11.27-16.99); Mean Corpuscular HGB Conc 33.0 g/dL (30-55); Mean Corpuscular Hemoglobin 31.1 pg (27-33); Mean Corpuscular Volume 94.1 fl (82-101); Nucleated Red Blood Cells % 0 %; Platelet Count 151 10^3/cmm (157-399); Red Blood Count 4.09 10^6/uL (3.85-5.65); White Blood Count 5.84 10^3/uL (3.29-11.43)
[2025-04-02 02:50] LABS: Blood Urea Nitrogen 13 mg/dL (8-23); Calcium 8.4 mg/dL (8.5-10.5); Carbon Dioxide 22 mmol/L (22-29); Chloride 105 mmol/L (98-107); Creatinine Clr Calc Pharmacy 78.2078; Glucose 139 mg/dL (65-115); Osmolality Calculated 288 mOsm/kg (285-295); Sodium 138 mmol/L (136-145)
[2025-04-02 02:54] LABS: Partial Thromboplastin Time 68.6 SECONDS (23.9-36.7)
[2025-04-02 02:57] LABS: Anion Gap 14.8 (5-19); Potassium 3.8 mmol/L (3.5-5.1)
[2025-04-02] MEDS: LORazepam 1 MG/0.5 ML injection IVP (04:25)
[2025-04-02] MEDS: haloperidol inj 5 mg/mL INJ 1 mL 2 MG IVP (04:25)
[2025-04-02] MEDS: LORazepam 2 mg/mL INJ 1 mL 1 MG IVP (04:30)
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
[2025-04-02 08:35] LABS: Partial Thromboplastin Time 52.3 SECONDS (23.9-36.7)
[2025-04-02] MEDS: nitroglycerin 1 gm/inch oint Pkt 1 INCH TOPICAL ×2 (09:02→21:59)
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
--- NOTE | 2025-04-02 09:56 | PC.NURSE ---
physician verbal order to discontinue restraints and sitter.
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
[2025-04-02] MEDS: heparin drip 25,000 UNIT/500 ML PREMIX 20 UNIT IV (16:26)
[2025-04-02 17:25] LABS: Partial Thromboplastin Time 65.7 SECONDS (23.9-36.7)
--- NOTE | 2025-04-02 19:37 | PC.NURSE ---
refused telemetry Hospitalist aware of the pt's refusal. Pt does allow nurse to monitor his VS and pulse oximetry. Talked to pt and this evening. He is agreeable to put his tele back on after his shower tonight. Informed night nurse Day.
[2025-04-02 23:08] LABS: Partial Thromboplastin Time 60.3 SECONDS (23.9-36.7)
[2025-04-03] VITALS: BP 148/87
[2025-04-03 04:00] VITALS: BP 129/73
[2025-04-03 04:41] LABS: Hematocrit 39.6 % (37-53); Hemoglobin 14.30 g/dL (11.27-16.99); Mean Corpuscular HGB Conc 36.1 g/dL (30-55); Mean Corpuscular Hemoglobin 31.6 pg (27-33); Mean Corpuscular Volume 87.6 fl (82-101); Nucleated Red Blood Cells % 0 %; Platelet Count 173 10^3/cmm (157-399); Red Blood Count 4.52 10^6/uL (3.85-5.65); White Blood Count 6.49 10^3/uL (3.29-11.43)
[2025-04-03 05:03] LABS: Anion Gap 15.0 (5-19); Blood Urea Nitrogen 11 mg/dL (8-23); Calcium 9.0 mg/dL (8.5-10.5); Carbon Dioxide 26 mmol/L (22-29); Chloride 103 mmol/L (98-107); Creatinine Clr Calc Pharmacy 56.8784; Glucose 172 mg/dL (65-115); Osmolality Calculated 293 mOsm/kg (285-295); Potassium 4.0 mmol/L (3.5-5.1); Sodium 140 mmol/L (136-145)
[2025-04-03 05:06] LABS: Partial Thromboplastin Time 79.6 SECONDS (23.9-36.7)
[2025-04-03 08:00] VITALS: BP 141/81; PULSE 71; RESP 16; TEMP 36.6; O2SAT 95
--- NOTE | 2025-04-03 10:54 | P.PN_ITS ---
<Statement entered by Ar Nieves MD - 04/03/25 16:56> Patient was evaluated and cared for in conjunction with an advanced practice practitioner. I reviewed the chart and all pertinent data. I discussed the patient in detail with the advanced practice practitioner. Please see their note for complete assessment and agreed upon plan of care for the patient. Subjective 2 Subjective: He remains anxious this morning wanting to get his procedure out of the way so he can go home. No chest pain reported overnight or this morning. He has Nitropaste applied to the chest at this time. Creatinine 1.1 this morning. Vitals/I&O/Wt Last Vital Signs Temp 97.9 F 04/03/25 08:00 Pulse 71 04/03/25 08:00 Resp 16 04/03/25 08:00 BP 141/81 04/03/25 08:00 Pulse Ox 95 04/03/25 08:00 O2 Del Method Room Air 04/03/25 08:00 04/02/25 04/03/25 04/03/25 22:59 06:59 14:59 Intake Total 383.251 / 1102.334 239 / 1102.334 Balance 383.251 / 822.334 239 / 822.334 Physical Exam 2 Const: COMMON NORMALS: no acute distress and patient oriented x3 GENERAL APPEARANCE: cooperative and comfortable ORIENTATION/CONSCIOUSNESS: Yes awake, Yes oriented to person, Yes oriented to place and Yes oriented to time Chest: COMMONS NORMALS: normal inspection of the chest and normal palpation of entire chest wall CHEST: Yes Symmetrical chest wall rise Resp: COMMON NORMALS: normal respiratory effort, No retractions, No use of accessory muscles and clear to auscultation bilaterally EFFORT & INSPECTION: Yes symmetric chest movement AUSCULTATION: clear to auscultation bilaterally Cardio: COMMON NORMALS: regular rate, regular rhythm, S1 normal heart sound present, S2 normal heart sound present, No gallops present (Cardio), No clicks present (Cardio), No murmurs present (Cardio) and No rub (Cardio) RATE: r egular rate RHYTHM: regular rhythm HEART SOUNDS: S1 normal heart sound present and S2 normal heart sound present PERIPHERAL PULSES: radial pulses present Extremity: COMMON NORMALS: no pedal edema Neuro: COMMON NORMALS: patient oriented x3 and moves all extremities S ENSORIUM/ORIENTATION: Yes oriented to person, Yes oriented to place and Yes oriented to time Data 04/03/25 04:27 04/03/25 04:27 A&P Assessment and plan 1. Non-ST elevation [place] (NSTEMI): 2. Unstable angina: 3. HTN (hypertension): 4. Diabetes mellitus: Plan: Coronary angiogram planned for noon today. Keep n.p.o. from now. Further plan devised after procedure. PDMP PDMP Reviewed: Not Reviewed Attestations 2 Medical Necessity Statement*: [facility] today Coding Level of Care Code Acute Code for [facility] Diagnoses Non-ST elevation [place] (NSTEMI) I21.4 Unstable angina I20.0 HTN (hypertension) I10 Diabetes mellitus E11.9
--- NOTE | 2025-04-03 11:29 | PC.NURSE ---
Called to patients room by life partner who states come help he wants his clothes on right now This nurse attempted to explain to patient and family at bedside he was just gotten ready for his procedure and he would not have to wait much longer patient standing up at end of bed attempting to pull off gown patient stated no I'm done waiting and will be going to [place] life partner asked this nurse please not argue with him will will just leave that's what he want to do and please just stop This nurse disconnected patient IV line for safety to allow fee movement to get dressed. Notified provider of events and patient wanting to leave AMA provider came to bedside while provider was trying to explain to patient the need for him to stay patient just said no I'm going to [place] I'm leaving patient refused to sign AMA form however was able to get life partner to sign and while i was explaining the increased risk of by leaving life partner just nodded and said yep and ok . caught up with patient he did allow me to remove IV cath intact dressing applied did state its fine to leave it in I'm just going to [place] educated patient that i could not leave it in and attempted one last time to get patient to stay for treatment patient declined care and was let off unit with life partner and belongings in had ambulated to Parking lot. Consulted provider made aware
--- NOTE | 2025-04-03 13:01 | PM.DCS ---
Discharge Providers Date of Admission: 03/31/25 12:26 Date of Discharge: April 03, 2025 Attending Provider at Admission: Cam Manrique MD Attending Provider at Discharge: Cam Manrique MD Consults: Cardiology Primary Care Provider: Salvador Wayne DO Diagnoses at Discharge Discharge Diagnosis 1. Non-ST elevation [place] (NSTEMI): 2. Unstable angina: 3. HTN (hypertension): 4. Diabetes mellitus: Reason for Visit Reason for Visit: Chest pain Hospital Course Hospital Course 79 year old male presenting with chest pain. Chest pain NSTEMI - questionable history of prior [place] in [place], however he was later told that he did not have any MIs - prior stress tests were negative, last was > 1 year ago - no history of cath, PCI or CABG - troponin initial 17, repeat increased to 28.72 - cardiology consulted: planning for cath today at noon AM, procedure postponed for engineering laboratory technician availability initially, postponed the next day because of combative behavior overnight, planning for noon today. - cont. heparin drip started in ER until after procedure. DMII - he takes metformin as OP - hold metformin with contrast procedure HTN - cont. amlodipine, lisinopril GERD - famotidine, PPI Hypophosphatemia - start oral replacement. PPx: on heparin drip Diet: HH, NPO after midnight Disposition - cath planned for noon today. Initially cath was postponed 2/2 lab availability. He was moved to a private room, however he wanted to leave the hospital overnight and security was called. He then became combative with security. Given haldol. Cath yesterday AM postponed due to haldol/sedation. - plan is for cath today at noon. Patient was agreeable to stay in the morning, had discussion with him and his . However around 11:20 AM he became anxious and wanted to leave. I again discussed with him in the hallway about staying for cath in the next 20 minutes to 1/2 hour. He was adamant that he was going to leave and go to [place]. Patient then left AMA. He was having some chest pain yesterday, denied any chest pain today. - Full code, up ad danilo - admited to CSU Physical Exam Narrative: Physical Exam Const: no acute distress, average body habitus and patient oriented x3 HENMT: normocephalic and atraumatic Eye: Equal, round and reactive pupils and EOMs intact bilaterally Neck/C-Spine: full ROM, no lymphadenopathy and no JVD Resp: clear to auscultation bilaterally Crdio: regular rate, regular rhythm, S1, S2 normal GI: Soft to palpation, non-tender and nondistended Back/Pelvis: no CVA tenderness Extremity: full ROM and no pedal edema, distant right arm injury Neuro: oriented x3 and CN's II-XII intact bilaterally Psych: mental status grossly normal, Normal thought process, cooperative and normal affect Discharge Data Studies Completed and Pending Completed Studies During Hospitalization Category Date Time Status XR chest 1V portable [id number] Stat Exams 03/31/25 09:11 Completed CV. echo complete* [id number] Routine Ultrasound 03/31/25 14:58 Completed Pending at discharge Category Date Time Status SECOND HELPER request for service Routine Exams 04/01/25 11:03 Ordered SECOND HELPER request for service Routine Exams 04/02/25 06:00 Ordered Radiology Impressions Chest X-Ray 03/31/25 09:11 IMPRESSION: 1. Pulmonary hyperinflation which may indicate obstructive lung disease. No acute process. Laboratory Results WBC 6.49 10^3/uL (3.29-11.43) 04/03/25 04:27 RBC 4.52 10^6/uL (3.85-5.65) 04/03/25 04:27 Hgb 14.30 g/dL (11.27-16.99) 04/03/25 04:27 Hct 39.6 % (37-53) 04/03/25 04:27 MCV 87.6 fl (82-101) 04/03/25 04:27 MCH 31.6 pg (27-33) 04/03/25 04:27 MCHC 36.1 g/dL (30-55) D 04/03/25 04:27 RDW 13.5 % (12.1-15.1) 04/03/25 04:27 Plt Count 173 10^3/cmm (157-399) 04/03/25 04:27 MPV 10.2 fL (7.4-10.4) 04/03/25 04:27 Neut % (Auto) 53.4 % 04/03/25 04:27 Lymph % (Auto) 32.5 % 04/03/25 04:27 [place] % (Auto) 8.5 % 04/03/25 04:27 Eos % (Auto) 4.5 % 04/03/25 04:27 Baso % (Auto) 0.9 % 04/03/25 04:27 Neut # (Auto) 3.47 10^3/uL (1.8-7.7) 04/03/25 04:27 Lymph # (Auto) 2.1 10^3/uL (0.8-4.8) 04/03/25 04:27 [place] # (Auto) 0.6 10^3/uL (0.2-0.9) 04/03/25 04:27 Eos # (Auto) 0.3 10^3/uL (0.0-0.8) 04/03/25 04:27 Baso # (Auto) 0.1 10^3/uL (0.0-0.1) 04/03/25 04:27 Nucleated RBC % (auto) 0 % 04/03/25 04:27 Nucleated RBCs # 0.0 /100WBC 04/03/25 04:27 APTT 79.6 SECONDS (23.9-36.7) H 04/03/25 04:27 Sodium 140 mmol/L (136-145) 04/03/25 04:27 Potassium 4.0 mmol/L (3.5-5.1) 04/03/25 04:27 Chloride 103 mmol/L (98-107) 04/03/25 04:27 Carbon Dioxide 26 mmol/L (22-29) 04/03/25 04:27 Anion Gap 15.0 (5-19) 04/03/25 04:27 BUN 11 mg/dL (8-23) 04/03/25 04:27 Creatinine 1.1 mg/dL (0.7-1.2) 04/03/25 04:27 GFR Calculation Not Reportable 04/03/25 04:27 Glucose 172 mg/dL (65-115) H 04/03/25 04:27 Calculated Osmolality 293 mOsm/kg (285-295) 04/03/25 04:27 Calcium 9.0 mg/dL (8.5-10.5) 04/03/25 04:27 Phosphorus 2.3 mg/dL (2.5-4.5) L 04/01/25 01:25 Magnesium 1.7 mg/dL (1.7-2.3) 04/01/25 01:25 Total Bilirubin 0.9 mg/dL (0.15-1.2) 03/31/25 09:09 AST 13 U/L (0-40) 03/31/25 09:09 ALT 13 U/L (0-41) 03/31/25 09:09 Alkaline Phosphatase 91 U/L (40-130) 03/31/25 09:09 Troponin T Baseline 17 ng/L (0-15) H 03/31/25 09:09 Troponin T 120 Minute 28.72 ng/L (0-15) H 03/31/25 11:09 Delta Troponin T 11.72 ABS# (0-10) H* 03/31/25 11:09 Troponin T Hi Sens 6Hr 25.10 ng/L (0-15) H 03/31/25 15:13 Troponin T Hi Sens 6Hr Delta 8.10 ng/L (0-12) 03/31/25 15:13 Total Protein 6.8 g/dL (6.6-8.7) 03/31/25 09:09 Albumin 4.4 g/dL (3.5-5.2) 03/31/25 09:09 Globulin 2.4 g/dL (1.3-4.6) 03/31/25 09:09 Vitals Last Vital Signs Temp 97.9 F 04/03/25 08:00 Pulse 71 04/03/25 08:00 Resp 16 04/03/25 08:00 BP 141/81 04/03/25 08:00 Pulse Ox 95 04/03/25 08:00 O2 Del Method Room Air 04/03/25 08:00 Discharge Plan Discharge Patient Disposition: Left Against Medical Advice Condition: Stable Prescriptions: No Action lisinopril 20 mg tablet 20 mg PO BID amlodipine 5 mg tablet 5 mg PO QAM lansoprazole 30 mg capsule,delayed release(DR/EC) 30 mg PO QAM metformin 500 mg tablet extended release 24 hr 500 mg PO BID tizanidine 4 mg tablet 4 mg PO DAILY famotidine 40 mg tablet 40 mg PO BEDTIME acetaminophen [Tylenol Ex Str Rapid Release] 500 mg Tablet 500 mg PO Q6H PRN (Reason: Pain) promethazine 25 mg tablet 25 mg PO Q6H PRN (Reason: nausea and vomiting) Qty: 20 0RF aspirin [Carlton Low Dose Aspirin] 81 mg Tablet,Delayed Release (Dr/Ec) 81 mg PO DAILY Patient Instructions: Left Heart Catheterization (DC), Opioid Safety, Patient Portal & Edd Instructions Discharge Attestations Time Spent in Discharge Care*: greater than 30 min Quality Metrics Clinical Quality Measures [ No reported AMI, CVA or VTE this stay] Coding Level of Care Code Acute Code for [facility] Diagnoses Non-ST elevation [place] (NSTEMI) I21.4 Unstable angina I20.0 HTN (hypertension) I10 Diabetes mellitus E11.9
== END 2025-04-03 11:28 | disposition left against medical advice (07) | DRG 282 ==
LOC: ER 09:40 → CSU 12:26
PROVIDERS: Internal Medicine Cardiovascular Disease; Admitting Provider Internal Medicine; Emergency Provider Family Medicine; PCP Family Medicine; Visit Provider Internal Medicine
DX: I21.4 Non-ST elevation (NSTEMI) myocardial infarction (principal); I10 Essential (primary) hypertension; E11.9 Type 2 diabetes mellitus without complications; K21.9 Gastro-esophageal reflux disease without esophagitis; G50.0 Trigeminal neuralgia; E83.39 Other disorders of phosphorus metabolism; I25.2 Old myocardial infarction; Z79.84 Long term (current) use of oral hypoglycemic drugs; Z79.82 Long term (current) use of aspirin; Z79.899 Other long term (current) drug therapy; Z88.8 Allergy status to other drugs, medicaments and biological substances; Z88.1 Allergy status to other antibiotic agents; Z88.5 Allergy status to narcotic agent; Z90.49 Acquired absence of other specified parts of digestive tract; Z87.891 Personal history of nicotine dependence; Z53.29 Procedure and treatment not carried out because of patient's decision for other reasons
CPT/HCPCS: 36415; 71045; 80048; 80053; 83735; 84100; 84484; 85025; 85730; 93005; 93306; 96365; 96366; 99285; J1630; J1644; J2060; J2250; J3010; J3490; J7030; J9999; Q0163